=== PATIENT | female | born 1940 | race African-American/Black ===

== ENCOUNTER 2016-10-14 16:27 | Inpatient (IN) ==
[2016-10-14] MEDS ORDERED: LOPERAMIDE 2 MG CAPSULE PO STA (18:27)
[2016-10-14] MEDS ORDERED: PANTOPRAZOLE 40 MG VIAL IV STA (18:27)
[2016-10-14] MEDS ORDERED: SODIUM CHLORIDE 0.9% 1,000 ML IV STA (18:27)
[2016-10-14] MEDS ORDERED: ONDANSETRON 4 MG/2 ML VIAL IV STA (18:27)
[2016-10-14] MEDS ORDERED: METOCLOPRAMIDE 10 MG/2 ML VIAL IV STA (18:27)
[2016-10-14] MEDS ORDERED: METOPROLOL TARTRATE 5 MG/5 ML VIAL IV STA ×2 (18:29→19:11)
[2016-10-14] MEDS ORDERED: DICYCLOMINE 20 MG/2 ML AMP IM ONE ×2 (18:32→19:34)
--- NOTE | 2016-10-14 18:32 | Emergency Department Note ---
Arrival - Arrival Chief Complaint: Nausea/Vomiting/Diarrhea Stated Complaint: virus ED Nursing Triage Note: Pt c/o nausea, vomiting, and diarrhea since this am. Mode of Arrival: Wheelchair Limitations: No Limitations Source: Patient Time Seen by Provider: 10/14/16 18:26 - History of Present Illness HPI Narrative: This 76-year-old black female presents with abrupt onset 12 hours ago upon awakening of nausea, vomiting, and diarrhea. She states she has had about a dozen episodes of both vomiting and diarrhea since awakening. She denies any chills, fever, melena, or bright red blood associated with this. She does complain of significant abdominal cramping however. She currently denies likewise shortness of breath, chest pain, dysuria, urgency, or frequency. At this time she does not appear in acute medical distress. Onset (ago): hour(s) (Patient presents 12 hours post onset of symptoms) Allergies/Adverse Reactions: Allergies Allergy/AdvReac Type Severity Reaction Status Date / Time Penicillins Allergy RASH Verified 10/14/16 16:32 Review of System - Review of System 12 point system: reviewed and no additional remarkable complaints except as stated - Review of System Constitutional: Present: as per HPI Respiratory: Present: as per HPI Cardiovascular: Present: as per HPI Gastrointestinal: Present: as per HPI Medical,Surgical,& Family Hx - Medical History Cardio: History of: Hypertension Endocrine: History of: Diabetes Mellitus (IDDM) - Social History Smoking Status: Never smoker Exam Physical Examination: GENERAL: Elderly obese black female in no acute distress. HEENT: Normocephalic. No trauma. Moist mucous membranes. EOMI. PERRLA. ENT NML NECK: Supple. No adenopathy. CARDIAC: Regular. No murmurs. Heart rate 130 CHEST: Clear to auscultation. No respiratory distress. O2 sat 97% ABDOMEN: Soft. Very tender upper quadrants. Hyperactive bowel sounds. EXTREMITIES: No trauma. Normal ROM. No pedal edema. SKIN: No diaphoresis. No rash. NEURO: Alert. Neuro intact. No focal deficits. Vital Signs: Vital Signs Temperature 99.2 F 10/14/16 21:44 Pulse Rate 132 H 10/14/16 21:44 Respiratory Rate 20 10/14/16 21:44 Blood Pressure 150/104 10/14/16 21:44 O2 Sat by Pulse Oximetry 97 10/14/16 16:31 Course Course Narrative: Left external jugular placed without difficulty. - Reevaluation(s) Reevaluation #1: Discussed with patient the need for hospitalization for acute diverticulitis and abnormal cardiac enzymes - Consultations Consultation #1: Discussed with Dr. Foote will admit for Dr. North Results - Labs CBC & BMP: 10/14/16 19:49 10/14/16 19:49 Labs: I reviewed the lab and noted the elevated white blood cell count and borderline azotemia with positive troponin. - Impressions EKG: Sinus tachycardia with occasional PAC. Normal OR interval and QRS duration. Nonspecific ST changes. No acute injury pattern noted. - Diagnostic Findings Procedure: CT Abdomen and Pelvis: image reviewed by me, report reviewed by me ( Evidence of diverticulitis) Disposition Clinical Impression: Diverticulitis, Abnormal cardiac and Case discussed with: patient, patient's family Disposition: Still a Patient Condition: Guarded Time of Disposition: 01:03
[2016-10-14] MEDS ORDERED: PANTOPRAZOLE 40 MG VIAL IV ONE (19:33)
[2016-10-14] MEDS ORDERED: ONDANSETRON 4 MG/2 ML VIAL ONE (19:34)
[2016-10-14] MEDS ORDERED: METOCLOPRAMIDE 10 MG/2 ML VIAL ONE (19:34)
[2016-10-14] MEDS ORDERED: LOPERAMIDE 2 MG CAPSULE ONE (19:34)
[2016-10-14] MEDS ORDERED: METOPROLOL TARTRATE 5 MG/5 ML VIAL IV ONE (19:34)
[2016-10-14 20:24] LABS: Alanine Aminotransferase 285 U/L (16-61); Albumin 3.2 G/DL (3.4-5.0); Alkaline Phosphatase 131 U/L (45-117); Amylase 35 U/L (25-115); Aspartate Amino Transferase 368 U/L (0-37); Blood Urea Nitrogen 20 MG/DL (7-18); Calcium 8.9 MG/DL (8.5-10.1); Glucose 240 MG/DL (74-106); Osmolality,Calculated 289.4 MOS/KG (273-304); Potassium 4.7 MMOL/L (3.5-5.1); Sodium 140 MMOL/L (136-145); Troponin I Only 0.113 NG/ML (0.00-0.045)
--- NOTE | 2016-10-14 20:33 | EKG Report ---
Stationary ECG Study [facility] ER Test Date: 10/14/2016 8:32:53 PM Pat Name: LUCY SERRA Department: Room: Gender: M Sap Fico Architect: : 1940 Requested by: Obed Huffman Order Number: [id number] Reading MD: QUENTIN REEVES Intervals [place] Rate: 108 P: 63 MS: 152 QRS: 32 QRSD: 72 T: 72 QT: 319 QTc: 383 Interpretive Statements SINUS TACHYCARDIA WITH OCCASIONAL SUPRAVENTRICULAR PREMATURE COMPLEXES Electronically Signed On 10-15-16 18:17:04 CDT by QUENTIN REEVES [email or web address]
[2016-10-14 20:57] LABS: Basophils % 0.2 % (0.0-0.8); Hematocrit 34.7 VOL% (42.0-52.0); Hemoglobin 11.7 GM/DL (14.0-18.0); Immature Granulocytes % 5.1 %; Immature Granulocytes Absolute 0.72 #; Lymphocytes # 1.3 10*3/uL (1.4-4.0); Mean Corpuscular HGB Conc 33.7 GM/DL (32-36); Mean Corpuscular Hemoglobin 30 PG (27-34); Mean Corpuscular Volume 88.3 FL (87-102); Mean Platelet Volume 10.7 FL (9.6-12.0); Monocytes # 0.8 10*3/uL (0.11-0.8); Monocytes % 5.7 % (1.7-12.7); NRBC # 0.23 10*3/uL; Neutrophils # 11.4 10*3/uL (1.4-7.4); Red Blood Count 3.93 MC/CUMM (3.8-5.5); Red Cell Distribution Width 15.6 % (9.3-17.3); White Blood Count 14.3 T/CUMM (4-12)
[2016-10-14 21:01] LABS: Platelet Count 98 T/CUMM (130-400)
[2016-10-14] MEDS ORDERED: hydrALAZINE 20 MG/1 ML VIAL IV STA (21:29)
[2016-10-14] MEDS ORDERED: LEVOFLOXACIN INJ 750 MG in PREMIX 1 EACH IV STA (21:40)
[2016-10-14 21:58] LABS: Anisocytosis 1+; Lymphocytes 13 % (20-55); Nucleated Red Blood Cells 1 (0-5); Platelet Estimate Decreased; Poikilocytosis 1+; Segmented Neutrophils 86 % (50-85); Tear Drop Cells Few; Total Cells Counted 100
[2016-10-14] MEDS ORDERED: hydrALAZINE 20 MG/1 ML VIAL ONE (22:23)
[2016-10-14] MEDS ORDERED: ALUM/MAG/SIMETH/LIDO VISC 1:1 30 ML BOTTLE PO ONE (22:43)
[2016-10-14] MEDS ORDERED: LEVOFLOXACIN INJ 150 ML IV ONE (22:46)
[2016-10-14 23:07] LABS: Troponin I Only 0.136 NG/ML (0.00-0.045)
[2016-10-15] MEDS ORDERED: CLOPIDOGREL 75 MG TABLET PO STA (01:05)
[2016-10-15] MEDS ORDERED: ONDANSETRON 4 MG/2 ML VIAL IV PRN (01:05)
[2016-10-15] MEDS ORDERED: GLUCAGON 1 MG VIAL IM PRN (01:05)
[2016-10-15] MEDS ORDERED: DEXTROSE 50% 25 GM/50 ML VIAL IV PRN (01:05)
[2016-10-15] MEDS ORDERED: HYDROmorphone 2 MG/1 ML VIAL IV PRN (01:05)
[2016-10-15] MEDS: METOCLOPRAMIDE 10 MG/2 ML VIAL IV SCH ×4 (02:37→22:29)
[2016-10-15] MEDS: CIPROFLOXACIN INJ 400 MG in PREMIX 1 EACH IV SCH ×2 (02:38→14:27)
[2016-10-15] MEDS: metroNIDAZOLE INJ 500 MG in PREMIX 1 EACH IV SCH ×4 (02:40→22:26)
[2016-10-15] MEDS: NITROGLYCERIN 2% OINT 1 INCH/GM PACK TOP SCH ×3 (05:54→17:46)
--- NOTE | 2016-10-15 06:32 | CT Report ---
Exam: CT abdomen pelvis w con Date: 10/14/2016 9:27 PM Comparison: None Indication: Abdominal pain and elevated white blood cell count Total DLP: 1371.2 mGy*cm Technical: The study was initially reviewed by [facility]. Oral contrast was administered. Images were obtained from the lung bases to the iliac crest continuation through the pelvis with 100 cc of Omnipaque 350 with axial sagittal coronal imaging available for review. Dose reduction was performed with decreasing kv and mA and automated exposure Findings: Lung bases: Low volume effusions present in the right as compared to the left. Liver and Spleen: Liver reveals a tiny cyst present in the inferior right hepatic lobe measuring approximately 15 mm. The hepatic and portal veins unremarkable. The spleen is otherwise intact. Gallbladder and Pancreas: Unremarkable Adrenals: Unremarkable Kidneys: Both kidneys are equally perfused and demonstrate no evidence for obstructive uropathy. Stomach: Incomplete distended with air-fluid and debris Retroperitoneum: No enlarged lymph nodes. Aorta and IVC: Minimal atherosclerotic plaque in the aorta iliac vessels and renal arteries. Vascular plaque in the iliac vessels also present. Bowel and Mesentery: Extensive diverticular changes are present. There is some irregularity along the cecal region present. Thickening of the bowel wall is also present with the diverticular changes in the descending colon and some stranding present. The appendix is unremarkable. Pelvis: Bladder: Incompletely distended with fluid Fluid: No free fluid identified. Lymph nodes: No enlarged lymph nodes. Pelvic organs: Previous hysterectomy. Osseous structures: Discogenic disease present with vacuum phenomena in the lower 3 levels with mild weightbearing deformity at T12 along the cephalic margin. The pelvis is otherwise intact. Facet arthropathy is noted. Impression: 1. Diverticulosis with possibly a component of mild diverticulitis. Some bowel wall thickening also present in the cecal region and the descending colon. 2. Cystic lesion in the right hepatic lobe versus small hemangioma 3. Small right pleural effusion 3. Degenerative spondylosis changes thoracolumbar spine with mild compression deformity at T12 also present. PROCEDURE INTERPRETED AT [facility] DEPARTMENT OF RADIOLOGY Final Report Signed by: Dr. Yair Pitt
--- NOTE | 2016-10-15 08:10 | Internal Med History&Physical ---
Assessment and Plan (1) Acute diverticulitis Status: Acute Assessment and plan: 76-year-old female admitted to acute care * Acute diverticulitis. Patient has been started on IV antibiotics. We are doing blood cultures. She is better this morning * Hypertension. Will continue blood pressure medication * Mildly elevated troponin. Unknown significance. No history of coronary artery disease. Will consult cardiology * Diabetes. Continue sliding scale and insulin * Temporal arteritis. Continue prednisone * Abnormal thyroid function. Patient had a nuclear scan. It was more consistent with acute thyroiditis. Will check TSH and free T4 * Discussed with patient. Current Visit: Yes (2) Hypertension Status: Acute Current Visit: Yes (3) Diabetes Status: Acute Current Visit: Yes (4) Abnormal thyroid function test Status: Acute Current Visit: Yes (5) Temporal arteritis Status: Acute Current Visit: Yes (6) Alzheimer's dementia Status: Acute Current Visit: Yes (7) Chronic back pain Status: Acute Current Visit: Yes History of Present Illness Chief complaint: Nausea vomiting and diarrhea History of present illness: Ms. Vasques is a 76 year old female with history of hypertension, diabetes, hyperlipidemia, temporal arteritis, multiple falls who was admitted through the ER with nausea vomiting and diarrhea since yesterday morning. Patient had gone at least 12 times and was having watery diarrhea. She was evaluated in the emergency room and was found to have acute diverticulitis on the CT abdomen. She denies any chest pain or shortness of breath. She was having significant abdominal cramping. Patient was found to be dehydrated. Her troponins were mildly elevated and she was admitted on telemetry. She denies any chest pain or shortness of breath. Patient lives at home with her . She uses a walker to get around her house. She denies any history of smoking or alcohol use Allergies Allergy/AdvReac Type Severity Reaction Status Date / Time Penicillins Allergy RASH Verified 10/14/16 16:32 Medical,Surgical,& Family Hx - Medical History Cardio: History of: Hypertension Psychological: History of: Depression Neurology: History of: Cerebrovascular Accident, Dementia Endocrine: History of: Diabetes Mellitus (IDDM), Dyslipidemia, Thyroid Disorder Rheumatology: History of;: Rheumatological Problems (Temporal arteritis) Gastrointestinal: History of: GERD Musculoskeletal: History of: Musculoskeletal Problems (Multiple falls recently with fracture) Hematology: History of: Anemia (Required transfusions in the past) - Surgical History Reproductive Surgeries: Surgical HX of;: Section (3), Hysterectomy Orthopedic Surgeries: Surgical HX of;: Orthopedic Surgery (Right rotator cuff surgery) - Family History Family History: Reports;: Family Cancer (Pancreatic and her mother), Family Diabetes, Family Hypertension, Family Stroke - Social History Smoking Status: Never smoker Frequency of Alcohol Use: None Marital Status: Lives With:: Spouse Functional capacity: uses cane/walker 12 point system: reviewed and no additional remarkable complaints except as stated (As mentioned in HPI) Exam - Constitutional Vitals: Period Temp Pulse Resp BP Sys/[place]on Pulse Ox Last 24 Hr 98.0 F-99.4 F 74-126 18-20 112-153/59-98 93-96 Exam: Examination: GENERAL: NAD. HEENT: PERRLA. EOMI. Mucous membranes are moist. NECK: Neck is supple. No JVD. No carotid bruit. No thyromegaly. CVS: Patient is tachycardic. S1 and S2 are normal. Rhythm is regular RESPIRATORY: Lungs are clear. No rales or rhonchi. ABDOMEN: Soft but diffuse tenderness mainly in left lower and middle quadrants. Bowel sounds are present. No hepatosplenomegaly. EXT: No edema. Peripheral pulses are present. AERIAL PHOTOGRAPHER: Patient is awake, alert and oriented to time place and person. Cranial nerves II through XII are grossly intact. Motor strength is 4/5 SKIN: Warm and dry. MSK: No obvious deformity. Results - Labs CBC & BMP: 10/14/16 19:49 10/14/16 19:49 Lab Results: I have reviewed the past 24 hour labs
[2016-10-15 08:21] LABS: Basophils % 0.2 % (0.0-0.8); Eosinophils % 0.2 % (0.00-10.9); Hematocrit 31.7 VOL% (35.7-47.0); Hemoglobin 10.7 GM/DL (12.0-16.0); Immature Granulocytes % 4.5 %; Immature Granulocytes Absolute 0.53 #; Lymphocytes # 1.5 10*3/uL (1.4-4.0); Lymphocytes % 12.9 % (21.3-54.2); Mean Corpuscular HGB Conc 33.8 GM/DL (32-36); Mean Corpuscular Hemoglobin 30 PG (27-34); Mean Corpuscular Volume 88.3 FL (87-102); Mean Platelet Volume 10.1 FL (9.6-12.0); Monocytes # 0.7 10*3/uL (0.11-0.8); Monocytes % 5.7 % (1.7-12.7); NRBC # 0.07 10*3/uL; Neutrophils # 9.1 10*3/uL (1.4-7.4); Neutrophils % 76.5 % (38.7-73.9); Platelet Count 95 T/CUMM (130-400); Red Blood Count 3.59 MC/CUMM (3.8-5.5); Red Cell Distribution Width 15.9 % (9.3-17.3); White Blood Count 11.8 T/CUMM (4-12)
[2016-10-15 08:42] LABS: Lymphocytes 17 % (20-55); Nucleated Red Blood Cells 1 (0-5); Segmented Neutrophils 78 % (50-85); Total Cells Counted 100
[2016-10-15 08:46] LABS: Microcytosis 1+
[2016-10-15 08:47] LABS: Hypochromasia Slight; Platelet Estimate Decreased
[2016-10-15 08:48] LABS: Calcium 8.2 MG/DL (8.5-10.1); Osmolality,Calculated 284.4 MOS/KG (273-304); Potassium 3.7 MMOL/L (3.5-5.1)
--- NOTE | 2016-10-15 08:53 | EKG Report ---
Stationary ECG Study [facility] Test Date: 10/15/2016 7:35:50 AM Pat Name: LUCY SERRA Department: Room: 280 Gender: F [employer] Bonder: HARRIS : 1940 Requested by: Obed Huffman Order Number: [id number] Reading MD: QUENTIN REEVES Intervals [place] Rate: 124 P: 999 [place]: 0 QRS: 27 QRSD: 71 T: 84 QT: 310 QTc: 383 Interpretive Statements SINUS TACHYCARDIA Electronically Signed On 10-15-16 18:28:11 CDT by QUENTIN REEVES [email or web address]
[2016-10-15] MEDS ORDERED: METOPROLOL TARTRATE 50 MG TABLET PO SCH (09:00)
[2016-10-15 09:08] LABS: Free T4 (Free Thyroxine) 1.04 NG/DL (0.76-1.46); Thyroid Stimulating Hormone 0.38 uIU/ml (0.358-3.74)
[2016-10-15] MEDS ORDERED: ACETAMINOPHEN 325 MG TABLET PO PRN (09:55)
[2016-10-15] MEDS ORDERED: traMADol 50 MG TABLET PO PRN (09:55)
[2016-10-15] MEDS: INSULIN NPH/REGULAR 70/30 100 UNIT/ML SUBCUT SCH ×2 (10:16→18:00)
[2016-10-15] MEDS: PANTOPRAZOLE 40 MG TABLET PO SCH ×2 (10:16→22:31)
[2016-10-15] MEDS: INSULIN REGULAR 100 UNIT/ML SUBCUT SCH ×4 (10:17→22:32)
--- NOTE | 2016-10-15 11:02 | Cardiology Consult Note ---
Addendum entered and electronically signed by Yasmin Escudero NP 10/15/16 15:10 : Patient was seen and examined with Dr. Rico. It is felt that patient's mildly elevated troponin is secondary to patient's tachycardia, hypertension and renal insufficiency. However, patient does have multiple risk factors including diabetes, hypertension, hyperlipidemia and sedentary lifestyle. For this reason, I think that patient should undergo further cardiac workup. This can be done as an outpatient when patient's acute diverticulitis resolves. Original Note: Assessment and Plan - Time spent with patient Time spent with patient: Greater than 30 minutes (1) Elevated troponin Status: Acute Assessment and plan: See plan of care listed below. Current Visit: Yes (2) Acute diverticulitis Status: Acute Assessment and plan: See plan of care listed below. Current Visit: Yes (3) Abnormal thyroid function test Status: Acute Assessment and plan: See plan of care listed below. Current Visit: Yes (4) Alzheimer's dementia Status: Chronic Assessment and plan: See plan of care listed below. Current Visit: Yes (5) Chronic back pain Status: Chronic Assessment and plan: See plan of care listed below. Current Visit: Yes (6) Diabetes Status: Chronic Assessment and plan: See plan of care listed below. Current Visit: Yes (7) Hypertension Status: Chronic Assessment and plan: See plan of care listed below. Current Visit: Yes (8) Temporal arteritis Status: Chronic Assessment and plan: See plan of care listed below. Current Visit: Yes (9) Dehydration Status: Acute Assessment and plan: See plan of care listed below. Current Visit: No (10) Sinus tachycardia Status: Acute Assessment and plan: See plan of care listed below. Current Visit: Yes History of Present Illness - Data of Consult Patient: new to practice Consult date: 10/15/16 Requesting Physician: Sunny North Primary care physician: Sunny North - Consult Narrative Reason for consult: Elevated troponin History of present illness: Occupational Therapy Assistant: NONE PCP: Dr. North Ms. Vasques is a 76 year old female without known history of coronary artery disease, not routinely followed by cardiology. Patient presented to the emergency department yesterday with complaints of abdominal pain, nausea, vomiting and diarrhea. Patient has cardiac risk factors significant for diabetes, hyperlipidemia, hypertension, advanced age and sedentary lifestyle. Lifetime non-smoker. She has past medical history of dementia, GERD, temporal arteritis and multiple falls. Patient has never undergone left heart catheterization or cardiac stress testing. Patient was in her usual state of health until yesterday when she began experiencing abdominal cramping, nausea, vomiting and diarrhea. She was diagnosed with acute diverticulitis and admitted under Dr. North's service. During her hospitalization, she was noted to have mildly elevated troponin, 0.113 and 0.136 in the setting of a creatinine of 1.6 and 1.4. No history of coronary artery disease. Cardiology was consulted to further evaluate this. Patient was seen and examined on the telemetry unit. She denies having any anginal symptoms. Denies chest pain, heaviness and tightness. She also has been without shortness of breath as well as dyspnea on exertion. EKG is unchanged from previous admissions. Upon arrival to the emergency department, she was noted to be dehydrated, IV fluids were initiated. She has been in sinus tachycardia with heart rates as high as 130. I suspect this is related to her dehydration as well as infectious process. Low-grade fevers noted. IV antibiotics have been initiated and patient continues to receive IV fluids. She reports that her abdominal cramping, nausea vomiting and diarrhea has slightly improved overnight. Currently, she is in normal sinus rhythm with heart rates in the 90s without any overt arrhythmias or ectopy noted. Vital signs are stable. Will continue to cycle cardiac biomarkers to ensure that there is no upward trend. Will discuss further with Dr. Rico and await his recommendations. Assessment/plan: 1. ELEVATED TROPONIN - Troponin mildly elevated upon admission, 0.113 and 0.136 in the setting of a creatinine of 1.6 and 1.4. Patient has been without anginal symptoms. EKG is unchanged from previous admissions. I suspect that this is most likely related to patient's elevated creatinine and tachycardia. We will continue to cycle cardiac biomarkers to ensure that there is no upward trend. Will discuss further with Dr. Rico and await his recommendations. 2. SINUS TACHYCARDIA - I suspect this is related to acute infectious process as well as dehydration. Continue with fluid resuscitation and IV antibiotics. We will continue to monitor and increase beta-idalia dose if needed. 3. HYPERTENSION - Continue current plan of care. 4. HYPERLIPIDEMIA - Continue current plan of care with lipid lowering agent. Lipid panel ordered. 5. ACUTE DIVERTICULITIS - This has clinically improved overnight. Continue current plan of care with IV antibiotics. Defer further management to attending. 6. DIABETES - Management per attending. 7. TEMPORAL ARTERITIS - Continue steroid therapy. Management per attending. 8. DEMENTIA - Continue current plan of care with Aricept. 9. ABNORMAL THYROID FUNCTION TEST - Nuclear scan was consistent with acute thyroiditis. Defer management of this to attending. 10. DEHYDRATION - Continue current plan of care with IV fluids. 11. GERD - Clinically stable. Continue current plan of care with PPI. -Further plan and addendum to follow per Dr. Rico. CC: Sunny North MD - Home Medications and Allergies Home Medications: Home Medications Medication Instructions Recorded Confirmed Type Aspirin [Ecotrin] 325 mg PO DAILY 08/30/15 10/15/16 History Donepezil [Aricept] 10 mg PO BEDTIME 08/30/15 10/15/16 History Estradiol Tab [Estrace Tab] 1 mg PO DAILY 08/30/15 10/15/16 History Pravastatin Sodium 20 mg PO DAILY 08/30/15 10/15/16 History Docusate Sodium Cap [Colace Cap] 100 mg PO BID capsule 02/05/16 10/15/16 Rx HYDROcodone/ACETAMIN 5-325 [[place] 1 tablet PO Q4H PRN #0 tablet 02/05/16 Rx 5-325] Insulin Aspart Prot/Asp 70/30 28 unit SUBCUT BID 02/28/16 10/15/16 History [NovoLOG Mix 70/30] Potassium Chloride Cap/Tab [K Dur] 10 meq PO DAILY 03/28/16 10/15/16 History Amitriptyline [Elavil] 75 mg PO BEDTIME 10/15/16 10/15/16 History Lisinopril [Lisinopril] 2.5 mg PO BEDTIME 10/15/16 10/15/16 History Losartan Potassium 50 mg PO DAILY 10/15/16 10/15/16 History Metoprolol Succinate 25 mg PO BEDTIME 10/15/16 10/15/16 History Morphine Ir Tab [Morphine IR Tab] 15 mg PO Q12HR PRN 10/15/16 10/15/16 History Omeprazole [Omeprazole] 20 mg PO BID 10/15/16 10/15/16 History PARoxetine HCl [Paroxetine HCl] 20 mg PO BEDTIME 10/15/16 10/15/16 History predniSONE TAB [PredniSONE] 5 mg PO DAILY 10/15/16 10/15/16 History Allergies/Adverse Reactions: Allergies Allergy/AdvReac Type Severity Reaction Status Date / Time Penicillins Allergy RASH Verified 10/14/16 16:32 propoxyphene Allergy RASH Verified 01/30/16 08:39 [From [facility]] - Constitutional Constitutional: Present: frequent falls, malaise. Absent: chills, fatigue, fever(s), weight gain, weight loss - Cardiovascular Cardiovascular: Absent: chest pain at rest, chest pain with activity, claudication, diaphoresis, dyspnea, dyspnea on exertion, edema, radiating jaw, neck or arm pain, lightheadedness, orthopnea, palpitations, PND - Respiratory Respiratory: Absent: cough, dyspnea, hemoptysis, dyspnea on exertion, wheezing, pain on inspiration, change in phlegm color - Gastrointestinal Gastrointestinal: Present: abdominal pain, change in bowel habits, diarrhea, loose stools, nausea, vomiting - Neurological Neurological: Present: frequent falls, headache(s). Absent: abnormal gait, abnormal speech, behavioral changes, dizziness, syncope Medical,Surgical,& Family Hx - Medical History Cardio: History of: Cerebrovascular Disease, Hypertension Psychological: History of: Depression Neurology: History of: Cerebrovascular Accident, Dementia Endocrine: History of: Diabetes Mellitus (NIDDM), Dyslipidemia, Thyroid Disorder Rheumatology: History of;: Rheumatological Problems (Temporal arteritis) Gastrointestinal: History of: GERD Musculoskeletal: History of: Musculoskeletal Problems (Multiple falls recently with fracture, chronic back pain) Hematology: History of: Anemia (Required transfusions in the past) No history of: Blood Transfusion Reaction Reproductive: No history of: Breast Cancer Other: History of: Miscellaneous Medical Problems (Temporal arteritis) - Surgical History HEENT Surgeries: Patient denies: Tonsilectomy & Adenoidectomy Abdominal Surgeries: Surgical HX of: Colonoscopy Patient denies: Appendectomy, Cholecystectomy, EGD Reproductive Surgeries: Surgical HX of;: Section (3), Hysterectomy Orthopedic Surgeries: Surgical HX of;: Orthopedic Surgery (Right rotator cuff surgery) Patient denies;: Total Hip Replacement, Total Knee Replacement - Family History Family History: Reports;: Family Cancer (Pancreatic and her mother), Family Diabetes, Family Hypertension, Family Stroke Denies;: Family Heart Disease - Social History Smoking Status: Never smoker Frequency of Alcohol Use: None Type of Drug Use: None Physical Examination Vital Signs Temp Pulse Resp BP Pulse Ox 99.2 F 132 H 20 150/104 97 10/14/16 16:31 10/14/16 16:31 10/14/16 16:31 10/14/16 16:31 10/14/16 16:31 General: Present: Appears Well, No Apparent Distress HEENT: Present: Normocephaly Neck: Present: Supple Neck, Midline Trachea, No JVD/HJR, No Bruit, No Lymphadenopathy Cardiac: Present: Reg Rate and Rhythm, Regular Rhythm, S1/S2, Tachycardia Lungs: Present: Normal Exam, Clear Ascult./Percussion, Normal Breath Sounds, No Wheeze, Rales, Rhonchi Abdomen: Present: Soft, Active Bowel Sounds, Tender Skin: Present: Clear. Absent: Rash, Suspicious Lesions, Ulceration Extremities: Present: No Clubbing, No Cyanosis, No Edema, Normal Upper Extr. Pulses, Normal Lower Extr. Pulses Result/EKG - Labs CBC & BMP: 10/15/16 08:14 10/15/16 08:14 Lab Results: I have reviewed the past 24 hour labs Labs: Laboratory Results - last 24 hr 10/15/16 10/15/16 10/15/16 08:14 08:14 08:14 WBC 11.8 RBC 3.59 L Hgb 10.7 L Hct 31.7 L MCV 88.3 MCH 30 MCHC 33.8 RDW 15.9 Plt Count 95 L MPV 10.1 Neut % (Auto) 76.5 H Lymph % (Auto) 12.9 L [place] % (Auto) 5.7 Eos % (Auto) 0.2 Baso % (Auto) 0.2 Neut # (Auto) 9.1 H Lymph # (Auto) 1.5 [place] # (Auto) 0.7 Eos # (Auto) 0.0 Baso # (Auto) 0.0 Total Counted 100 Immature Gran % 4.5 Nucleated RBC % 0.6 Immature Gran # 0.53 Segmented Neutrophils 78 Lymphocytes 17 L Monocytes 5 Nucleated RBCs 1 Nucleated RBCs # 0.07 Platelet Estimate Decreased Hypochromasia Slight Microcytosis 1+ Sodium 140 Potassium 3.7 Chloride 104 Carbon Dioxide 25 Anion Gap 14.7 BUN 15 Creatinine 1.40 H GFR Calculation 50 BUN/Creatinine Ratio 10.00 Glucose 183 H Calculated Osmolality 284.4 Calcium 8.2 L Free T4 1.04 TSH 3rd Generation 0.380 - EKG EKG results: sinus rhythm EKG shows: tachycardia
[2016-10-15] MEDS ORDERED: MORPHINE IR 15 MG TABLET PO PRN (11:27)
[2016-10-15] MEDS ORDERED: METOPROLOL TARTRATE 50 MG TABLET PO ONE (11:49)
[2016-10-15] MEDS: SODIUM CHLORIDE 0.9% 1,000 ML IV SCH ×3 (12:45→23:48)
[2016-10-15 13:08] LABS: Troponin I Only 0.113 NG/ML (0.00-0.045)
--- NOTE | 2016-10-15 18:10 | ECHO Report ---
Evy Vasques Exam Date: 10/15/2016 16:34 Referring Physician: Technologist: Radha Araiza RDCS Age: 76 Ht (in): 68 Wt (lb): 201 Gender: F Exam Location: [facility] Echo Indications: Essential (primary) hypertension, Elevated troponin, Diabetes BP: 144 / 79 HR: 90 Rhythm: Sinus Technical Quality: Fair IMPRESSIONS EF 50%. Mild concentric left ventricular hypertrophy. Grade I/IV diastolic dysfunction (abnormal relaxation filling pattern), normal to mildly elevated filling pressures. Normal right ventricular size and systolic function. The right atrium is mildly enlarged. The left atrium is mildly enlarged. Mitral valve sclerosis. Trace mitral valve regurgitation. Aortic valve sclerosis. Trace aortic valve regurgitation. Moderate tricuspid valve regurgitation. PAP 45 mmHG. Pulmonic valve not well visualized. No pericardial effusion. Normal aorta. MEASUREMENTS (Male / Female) Normal Values 2D ECHO LV Diastolic Diameter PLAX 3.4 cm 4.2 - 5.9 / 3.9 - 5.3 cm LV Systolic Diameter PLAX 2.8 cm LV Fractional Shortening PLAX 18.1 % IVS Diastolic Thickness 1.2 cm 0.6 - 1.0 / 0.6 - 0.9 cm LVPW Diastolic Thickness 1.2 cm 0.6 - 1.0 / 0.6 - 0.9 cm RV Internal Dim ED PLAX 2.3 cm Aortic Root Diameter 2.8 cm LA Systolic Diameter LX 2.9 cm 3.0 - 4.0 / 2.7 - 3.8 cm DOPPLER TR Peak Velocity 280.0 cm/s TR Peak Gradient 31.4 mmHg FINDINGS Left Ventricle EF 50%. Mild concentric left ventricular hypertrophy. Grade I/IV diastolic dysfunction (abnormal relaxation filling pattern), normal to mildly elevated filling pressures. Right Ventricle Normal right ventricular size and systolic function. Right Atrium The right atrium is mildly enlarged. Left Atrium The left atrium is mildly enlarged. Mitral Valve Mitral valve sclerosis. Trace mitral valve regurgitation. Aortic Valve Aortic valve sclerosis. Trace aortic valve regurgitation. Tricuspid Valve Morphologically normal tricuspid valve. Moderate tricuspid valve regurgitation. PAP 45 mmHG. Pulmonic Valve Pulmonic valve not well visualized. Pericardium No pericardial effusion. Aorta Normal aorta. Xavier Josefa (Electronically Signed) Final Date: 15 Oct 2016 18:09
[2016-10-15 20:02] LABS: Troponin I Only 0.077 NG/ML (0.00-0.045)
[2016-10-15] MEDS ORDERED: METOPROLOL TARTRATE 100 MG TABLET PO SCH (21:00)
[2016-10-15] MEDS ORDERED: METOPROLOL SUCCINATE XL 25 MG TABLET PO SCH (21:00)
[2016-10-15] MEDS: ENOXAPARIN 40 MG/0.4 ML SYRINGE SUBCUT SCH (22:28)
[2016-10-15] MEDS: DONEPEZIL 10 MG TABLET PO SCH (22:29)
[2016-10-15] MEDS: PARoxetine 20 MG TABLET PO SCH (22:30)
[2016-10-15] MEDS: AMITRIPTYLINE 25 MG TABLET PO SCH (22:30)
[2016-10-15] MEDS: DOCUSATE SODIUM 100 MG CAPSULE PO SCH (22:31)
[2016-10-15] MEDS: INSULIN ASPART PROTAMINE/ASPART 70/30 100 UNIT/ML SUBCUT SCH (22:31)
[2016-10-15] MEDS: METOPROLOL TARTRATE 100 MG TABLET PO SCH (22:32)
[2016-10-16] MEDS: NITROGLYCERIN 2% OINT 1 INCH/GM PACK TOP SCH ×4 (00:07→18:21)
[2016-10-16] MEDS: CIPROFLOXACIN INJ 400 MG in PREMIX 1 EACH IV SCH ×2 (00:30→12:31)
[2016-10-16] MEDS: metroNIDAZOLE INJ 500 MG in PREMIX 1 EACH IV SCH ×4 (04:31→20:47)
[2016-10-16] MEDS: METOCLOPRAMIDE 10 MG/2 ML VIAL IV SCH (04:31)
[2016-10-16 05:31] LABS: Basophils % 0.2 % (0.0-0.8); Eosinophils # 0.1 10*3/uL (0.0-0.87); Eosinophils % 0.6 % (0.00-10.9); Hemoglobin 9.1 GM/DL (12.0-16.0); Immature Granulocytes % 5.3 %; Immature Granulocytes Absolute 0.48 #; Lymphocytes # 1.7 10*3/uL (1.4-4.0); Lymphocytes % 18.8 % (21.3-54.2); Mean Corpuscular HGB Conc 33.7 GM/DL (32-36); Mean Corpuscular Hemoglobin 30 PG (27-34); Mean Corpuscular Volume 88.5 FL (87-102); Mean Platelet Volume 10.7 FL (9.6-12.0); Monocytes # 0.6 10*3/uL (0.11-0.8); Monocytes % 6.9 % (1.7-12.7); NRBC # 0.03 10*3/uL; Neutrophils # 6.2 10*3/uL (1.4-7.4); Neutrophils % 68.2 % (38.7-73.9); Red Blood Count 3.05 MC/CUMM (3.8-5.5); Red Cell Distribution Width 15.9 % (9.3-17.3); White Blood Count 9.1 T/CUMM (4-12)
[2016-10-16 05:36] LABS: Platelet Count 99 T/CUMM (130-400)
[2016-10-16 05:56] LABS: Lymphocytes 23 % (20-55); Nucleated Red Blood Cells 1 (0-5); Segmented Neutrophils 74 % (50-85); Total Cells Counted 100
[2016-10-16 05:57] LABS: Hypochromasia Slight; Microcytosis 1+; Platelet Estimate Decreased; Tear Drop Cells Slight
[2016-10-16 06:02] LABS: Risk Ratio 2.47
[2016-10-16 06:04] LABS: Troponin I Only 0.068 NG/ML (0.00-0.045)
[2016-10-16 06:05] LABS: Albumin 2.6 G/DL (3.4-5.0); Bilirubin,Total 0.7 MG/DL (0.2-1.0); Calcium 7.4 MG/DL (8.5-10.1); Osmolality,Calculated 281.1 MOS/KG (273-304); Potassium 3.4 MMOL/L (3.5-5.1); Total Protein 5.3 G/DL (6.4-8.3)
[2016-10-16] MEDS: INSULIN REGULAR 100 UNIT/ML SUBCUT SCH ×4 (08:29→21:20)
[2016-10-16] MEDS: INSULIN NPH/REGULAR 70/30 100 UNIT/ML SUBCUT SCH (08:29)
[2016-10-16] MEDS: INSULIN ASPART PROTAMINE/ASPART 70/30 100 UNIT/ML SUBCUT SCH ×2 (08:29→21:20)
[2016-10-16] MEDS ORDERED: POTASSIUM CHLORIDE 10 MEQ TABLET PO SCH (09:00)
--- NOTE | 2016-10-16 09:07 | Internal Med Progress Note ---
Assessment and Plan (1) Acute diverticulitis Status: Acute Assessment and plan: 76-year-old female admitted to acute care * Acute diverticulitis. Clinically better. Continue antibiotic * Hypertension. Will continue blood pressure medication * Mildly elevated troponin. Outpatient workup * Diabetes. Continue sliding scale and insulin * Temporal arteritis. Continue prednisone * Abnormal thyroid function. Will check her thyroid function * Will move her to regular floor Current Visit: Yes (2) Hypertension Status: Chronic Current Visit: Yes (3) Diabetes Status: Chronic Current Visit: Yes (4) Abnormal thyroid function test Status: Acute Current Visit: Yes (5) Temporal arteritis Status: Chronic Current Visit: Yes (6) Alzheimer's dementia Status: Chronic Current Visit: Yes (7) Chronic back pain Status: Chronic Current Visit: Yes Internal Medicine - PN: Subj Interval history: She is feeling better this morning. She had some nausea. She is not hurting in her abdomen. No chest pain or shortness of breath. Exam (Progress Note) - Constitutional Vitals: Period Temp Pulse Resp BP Sys/Salmeron Pulse Ox Last 24 Hr 97.9 F-99.2 F 80-95 16-20 131-163/68-99 93-97 Exam: Examination: GENERAL: NAD. HEENT: PERRLA. EOMI. NECK: Neck is supple. CVS: Patient is tachycardic. S1 and S2 are normal. Rhythm is regular RESPIRATORY: Lungs are clear. No rales or rhonchi. ABDOMEN: Soft, mild tenderness in left lower quadrant EXT: No edema. Peripheral pulses are present. SKIN: Warm and dry. MSK: No obvious deformity. Results - Labs CBC & BMP: 10/16/16 05:11 10/16/16 05:11 Lab Results: I have reviewed the past 24 hour labs
[2016-10-16] MEDS: DOCUSATE SODIUM 100 MG CAPSULE PO SCH ×2 (09:09→20:47)
[2016-10-16] MEDS: predniSONE 5 MG TABLET PO SCH (09:09)
[2016-10-16] MEDS: ASPIRIN EC 325 MG TABLET PO SCH (09:09)
[2016-10-16] MEDS: ESTRADIOL 1 MG TABLET PO SCH (09:09)
[2016-10-16] MEDS: PRAVASTATIN 20 MG TABLET PO SCH (09:09)
[2016-10-16] MEDS: METOPROLOL TARTRATE 100 MG TABLET PO SCH ×2 (09:09→20:46)
[2016-10-16] MEDS: PANTOPRAZOLE 40 MG TABLET PO SCH ×3 (09:10→20:55)
[2016-10-16] MEDS: SODIUM CHLORIDE 0.9% 1,000 ML IV SCH (09:18)
--- NOTE | 2016-10-16 15:58 | Cardiology Progress Note ---
Assessment and Plan (1) Elevated troponin Status: Acute Assessment and plan: See plan of care listed below. Current Visit: Yes (2) Acute diverticulitis Status: Acute Assessment and plan: See plan of care listed below. Current Visit: Yes (3) Abnormal thyroid function test Status: Acute Assessment and plan: See plan of care listed below. Current Visit: Yes (4) Alzheimer's dementia Status: Chronic Assessment and plan: See plan of care listed below. Current Visit: Yes (5) Chronic back pain Status: Chronic Assessment and plan: See plan of care listed below. Current Visit: Yes (6) Diabetes Status: Chronic Assessment and plan: See plan of care listed below. Current Visit: Yes (7) Hypertension Status: Chronic Assessment and plan: See plan of care listed below. Current Visit: Yes (8) Temporal arteritis Status: Chronic Assessment and plan: See plan of care listed below. Current Visit: Yes (9) Dehydration Status: Acute Assessment and plan: See plan of care listed below. Current Visit: No (10) Sinus tachycardia Status: Acute Assessment and plan: See plan of care listed below. Current Visit: Yes Cardiology - PN: Subj Interval history: Peanut Grader: Dr. Rico (NEW) PCP: Dr. North Ms. Vasques is a 76 year old female without known history of coronary artery disease, not routinely followed by cardiology. Patient presented to the emergency department yesterday with complaints of abdominal pain, nausea, vomiting and diarrhea. Patient has cardiac risk factors significant for diabetes, hyperlipidemia, hypertension, advanced age and sedentary lifestyle. Lifetime non-smoker. She has past medical history of dementia, GERD, temporal arteritis and multiple falls. Patient has never undergone left heart catheterization or cardiac stress testing. Patient was admitted to [facility] with acute diverticulitis. She is admitted under Dr. North's service. During her hospitalization, she was noted to have mildly elevated troponin, 0.113 and 0.136 in the setting of renal insufficiency, hypertension and tachycardia. No history of coronary artery disease. Cardiology was consulted to further evaluate this. Echocardiogram reveals ejection fraction of 50%. Mild concentric left ventricular hypertrophy. Grade 1 diastolic dysfunction. Moderate TR. Pulmonary artery pressure 45 mmHg. She denies having any anginal symptoms. She is treated appropriately for acute diverticulitis. Her symptoms have clinically improved overnight. She continues to be without chest pain, heaviness and tightness. Clinically, she is stable from a cardiac standpoint. At this time we will sign off. Please contact us if we can begin any further assistance during her hospital stay. Assessment/plan: 1. ELEVATED TROPONIN - Patient has been without anginal symptoms. EKG is unchanged from previous admissions. I suspect that this is most likely related to patient's renal insufficiency, hypertension and tachycardia. However, patient does have multiple risk factors including diabetes, hypertension, hyperlipidemia and sedentary lifestyle. For this reason, I think that patient should undergo further cardiac workup. This can be done as an outpatient once patient's acute diverticulitis resolves. Patient will be given a follow-up appointment with Dr. Rico approximately 2 weeks after discharge. Patient is stable from a cardiac standpoint. At this time we will sign off. Please contact us if we can be to any further assistance during her hospital stay. 2. SINUS TACHYCARDIA - Resolved. 3. HYPERTENSION - Continue current plan of care. 4. HYPERLIPIDEMIA - Continue current plan of care with lipid lowering agent. Lipid panel ordered. 5. ACUTE DIVERTICULITIS - Clinically better. Continue current plan of care with IV antibiotics. Defer further management to attending. 6. DIABETES - Management per attending. 7. TEMPORAL ARTERITIS - Continue steroid therapy. Management per attending. 8. DEMENTIA - Continue current plan of care with Aricept. 9. ABNORMAL THYROID FUNCTION TEST - Nuclear scan was consistent with acute thyroiditis. Defer management of this to attending. 10. DEHYDRATION - Management per attending. 11. GERD - Clinically stable. Continue current plan of care with PPI. Exam (Progress Note) - Constitutional Vitals: Period Temp Pulse Resp BP Sys/Salmeron Pulse Ox Last 24 Hr 97.9 F-99.2 F 80-95 18-20 131-163/68-99 93-97 Exam: General: Present: Appears Well, No Apparent Distress HEENT: Present: Normocephaly Neck: Present: Supple Neck, Midline Trachea, No JVD/HJR, No Bruit, No Lymphadenopathy Cardiac: Present: Reg Rate and Rhythm, Regular Rhythm, S1/S2 Lungs: Present: Normal Exam, Clear Ascult./Percussion, Normal Breath Sounds, No Wheeze, Rales, Rhonchi Abdomen: Present: Soft, Active Bowel Sounds, Tender Skin: Present: Clear. Absent: Rash, Suspicious Lesions, Ulceration Extremities: Present: No Clubbing, No Cyanosis, No Edema, Normal Upper Extr. Pulses, Normal Lower Extr. Pulses Result/EKG - Labs CBC & BMP: 10/16/16 05:11 10/16/16 05:11 Lab Results: I have reviewed the past 24 hour labs Labs: Laboratory Results - last 24 hr 10/15/16 10/15/16 10/15/16 15:37 17:36 19:07 WBC RBC Hgb Hct MCV MCH MCHC RDW Plt Count MPV Neut % (Auto) Lymph % (Auto) [place] % (Auto) Eos % (Auto) Baso % (Auto) Neut # (Auto) Lymph # (Auto) [place] # (Auto) Eos # (Auto) Baso # (Auto) Total Counted Immature Gran % Nucleated RBC % Immature Gran # Segmented Neutrophils Lymphocytes Monocytes Nucleated RBCs Nucleated RBCs # Platelet Estimate Hypochromasia Microcytosis Tear Drop Cells Sodium Potassium Chloride Carbon Dioxide Anion Gap BUN Creatinine GFR Calculation BUN/Creatinine Ratio Glucose POC Glucose 207 H 90 Calculated Osmolality Calcium Total Bilirubin AST ALT Alkaline Phosphatase Total Creatine Kinase 92 CK-MB (CK-2) 1.8 Troponin I 0.077 H D Total Protein Albumin Globulin Albumin/Globulin Ratio Triglycerides Cholesterol LDL Cholesterol VLDL Cholesterol HDL Cholesterol Heart Disease Risk Ratio 10/15/16 10/16/16 10/16/16 19:40 05:11 05:11 WBC 9.1 RBC 3.05 L Hgb 9.1 L Hct 27.0 L MCV 88.5 MCH 30 MCHC 33.7 RDW 15.9 Plt Count 99 L MPV 10.7 Neut % (Auto) 68.2 Lymph % (Auto) 18.8 L [place] % (Auto) 6.9 Eos % (Auto) 0.6 Baso % (Auto) 0.2 Neut # (Auto) 6.2 Lymph # (Auto) 1.7 [place] # (Auto) 0.6 Eos # (Auto) 0.1 Baso # (Auto) 0.0 Total Counted 100 Immature Gran % 5.3 Nucleated RBC % 0.3 Immature Gran # 0.48 Segmented Neutrophils 74 Lymphocytes 23 Monocytes 3 Nucleated RBCs 1 Nucleated RBCs # 0.03 Platelet Estimate Decreased Hypochromasia Slight Microcytosis 1+ Tear Drop Cells Slight Sodium Potassium Chloride Carbon Dioxide Anion Gap BUN Creatinine GFR Calculation BUN/Creatinine Ratio Glucose POC Glucose 105 Calculated Osmolality Calcium Total Bilirubin AST ALT Alkaline Phosphatase Total Creatine Kinase CK-MB (CK-2) Troponin I Total Protein Albumin Globulin Albumin/Globulin Ratio Triglycerides 145 Cholesterol 193 LDL Cholesterol 96.0 VLDL Cholesterol 29.0 HDL Cholesterol 78 H Heart Disease Risk Ratio 2.47 10/16/16 10/16/16 10/16/16 05:11 05:11 07:29 WBC RBC Hgb Hct MCV MCH MCHC RDW Plt Count MPV Neut % (Auto) Lymph % (Auto) [place] % (Auto) Eos % (Auto) Baso % (Auto) Neut # (Auto) Lymph # (Auto) [place] # (Auto) Eos # (Auto) Baso # (Auto) Total Counted Immature Gran % Nucleated RBC % Immature Gran # Segmented Neutrophils Lymphocytes Monocytes Nucleated RBCs Nucleated RBCs # Platelet Estimate Hypochromasia Microcytosis Tear Drop Cells Sodium 142 Potassium 3.4 L Chloride 109 H Carbon Dioxide 24 Anion Gap 12.4 BUN 10 Creatinine 1.20 H GFR Calculation 61 BUN/Creatinine Ratio 8.00 Glucose 90 POC Glucose 115 H Calculated Osmolality 281.1 Calcium 7.4 L Total Bilirubin 0.70 AST 52 H ALT 127 H Alkaline Phosphatase 97 Total Creatine Kinase 91 CK-MB (CK-2) 1.6 Troponin I 0.068 H Total Protein 5.3 L Albumin 2.6 L Globulin 2.7 Albumin/Globulin Ratio 0.9 L Triglycerides Cholesterol LDL Cholesterol VLDL Cholesterol HDL Cholesterol Heart Disease Risk Ratio 10/16/16 11:16 WBC RBC Hgb Hct MCV MCH MCHC RDW Plt Count MPV Neut % (Auto) Lymph % (Auto) [place] % (Auto) Eos % (Auto) Baso % (Auto) Neut # (Auto) Lymph # (Auto) [place] # (Auto) Eos # (Auto) Baso # (Auto) Total Counted Immature Gran % Nucleated RBC % Immature Gran # Segmented Neutrophils Lymphocytes Monocytes Nucleated RBCs Nucleated RBCs # Platelet Estimate Hypochromasia Microcytosis Tear Drop Cells Sodium Potassium Chloride Carbon Dioxide Anion Gap BUN Creatinine GFR Calculation BUN/Creatinine Ratio Glucose POC Glucose 233 H Calculated Osmolality Calcium Total Bilirubin AST ALT Alkaline Phosphatase Total Creatine Kinase CK-MB (CK-2) Troponin I Total Protein Albumin Globulin Albumin/Globulin Ratio Triglycerides Cholesterol LDL Cholesterol VLDL Cholesterol HDL Cholesterol Heart Disease Risk Ratio Specialty Discharge - Follow Up or Referrals Follow up with: Brodie Rico MD [Physician] - 2 Weeks (Please schedule appointment with Dr. Rico 2 weeks post discharge to discuss outpatient cardiac workup.)
[2016-10-16] MEDS: DONEPEZIL 10 MG TABLET PO SCH (20:46)
[2016-10-16] MEDS: AMITRIPTYLINE 25 MG TABLET PO SCH (20:46)
[2016-10-16] MEDS: PARoxetine 20 MG TABLET PO SCH (20:47)
[2016-10-16] MEDS: ENOXAPARIN 40 MG/0.4 ML SYRINGE SUBCUT SCH (20:47)
[2016-10-16] MEDS: POTASSIUM CHLORIDE 10 MEQ TABLET PO SCH (20:55)
[2016-10-17] MEDS: CIPROFLOXACIN INJ 400 MG in PREMIX 1 EACH IV SCH (00:51)
[2016-10-17] MEDS: NITROGLYCERIN 2% OINT 1 INCH/GM PACK TOP SCH ×2 (00:51→05:34)
[2016-10-17] MEDS: metroNIDAZOLE INJ 500 MG in PREMIX 1 EACH IV SCH ×2 (02:06→08:42)
[2016-10-17 05:45] LABS: Basophils % 0.5 % (0.0-0.8); Eosinophils # 0.1 10*3/uL (0.0-0.87); Eosinophils % 0.9 % (0.00-10.9); Hematocrit 26.7 VOL% (35.7-47.0); Hemoglobin 8.8 GM/DL (12.0-16.0); Immature Granulocytes % 6.5 %; Lymphocytes # 1.7 10*3/uL (1.4-4.0); Mean Corpuscular Hemoglobin 29 PG (27-34); Mean Platelet Volume 10.7 FL (9.6-12.0); Monocytes # 0.5 10*3/uL (0.11-0.8); Monocytes % 6.5 % (1.7-12.7); NRBC # 0.03 10*3/uL; Neutrophils # 4.9 10*3/uL (1.4-7.4); Neutrophils % 63.6 % (38.7-73.9); Platelet Count 107 T/CUMM (130-400); Red Cell Distribution Width 16.1 % (9.3-17.3); White Blood Count 7.7 T/CUMM (4-12)
[2016-10-17 06:12] LABS: Hypochromasia Slight; Lymphocytes 26 % (20-55); Microcytosis 1+; Nucleated Red Blood Cells 1 (0-5); Segmented Neutrophils 70 % (50-85); Total Cells Counted 100
[2016-10-17 06:13] LABS: Platelet Estimate Decreased
[2016-10-17 06:15] LABS: Calcium 7.4 MG/DL (8.5-10.1); Osmolality,Calculated 282.1 MOS/KG (273-304); Potassium 3.6 MMOL/L (3.5-5.1)
--- NOTE | 2016-10-17 08:12 | Discharge Summary ---
Hospital Course - Hospital Course Hospital Course: Patient is 76-year-old female with history of multiple medical problems including hypertension, diabetes, hyperlipidemia, temporal arteritis who was admitted with nausea vomiting and diarrhea. Patient was dehydrated. She was found to have acute diverticulitis. She was started on antibiotics. She was found to have elevated troponins and cardiology saw her. They want to do a workup as an outpatient. She has gradually improved over the last few days. She has not had any fever. Her blood cultures are negative. She is ready to go home. We will continue her on Cipro for another 7 days. Her medications have been adjusted. Her lisinopril has been stopped and metoprolol has been increased. She will be seen by home health care at home. I will see her back in office in 2 weeks. Diagnosis - Discharge Diagnosis (1) Acute diverticulitis Status: Acute (2) Hypertension Status: Chronic (3) Diabetes Status: Chronic (4) Abnormal thyroid function test Status: Acute (5) Temporal arteritis Status: Chronic (6) Alzheimer's dementia Status: Chronic (7) Chronic back pain Status: Chronic Specialty Discharge - Follow Up or Referrals Follow up with: Brodie Rico MD [Physician] - 2 Weeks (Please schedule appointment with Dr. Rico 2 weeks post discharge to discuss outpatient cardiac workup.) Discharge Plan - Discharge Data Disposition: Home Health Service Condition at Discharge: Stable Discharge Diet: advance to your usual diet, diabetic diet Activity: ambulate only with your walker, as per physical therapy - Discharge Medications New Ciprofloxacin Tab [Cipro Tab] 500 mg PO BID #14 tablet Metoprolol Tartrate Tab [Lopressor Tab] 50 mg PO BID #60 tablet Continue Pravastatin Sodium 20 mg PO DAILY Donepezil [Aricept] 10 mg PO BEDTIME Aspirin [Ecotrin] 325 mg PO DAILY Estradiol Tab [Estrace Tab] 1 mg PO DAILY Docusate Sodium Cap [Colace Cap] 100 mg PO BID capsule HYDROcodone/ACETAMIN 5-325 [[place] 5-325] 1 tablet PO Q4H PRN #0 tablet PRN Reason: Pain Moderate (4-7) Insulin Aspart Prot/Asp 70/30 [NovoLOG Mix 70/30] 28 unit SUBCUT BID Potassium Chloride Cap/Tab [K Dur] 10 meq PO DAILY Omeprazole 20 mg PO BID PARoxetine HCl [Paroxetine HCl] 20 mg PO BEDTIME Losartan Potassium 50 mg PO DAILY Amitriptyline [Elavil] 75 mg PO BEDTIME predniSONE TAB [PredniSONE] 5 mg PO DAILY Morphine Ir Tab [Morphine IR Tab] 15 mg PO Q12HR PRN PRN Reason: Pain Discontinued Lisinopril [Lisinopril] 2.5 mg PO BEDTIME Metoprolol Succinate 25 mg PO BEDTIME - Follow Up or Referral Follow Up: Brodie Rico MD [Physician] - 2 Weeks (Please schedule appointment with Dr. Rico 2 weeks post discharge to discuss outpatient cardiac workup.) - Forms/Instructions Additional Discharge Instructions: Appointment as outpatient in 2 weeks. CBC and a BMP. Please call in the medications which have been ordered. I have home health care see the patient for now Exam - Constitutional Vitals: Period Temp Pulse Resp BP Sys/Salmeron Pulse Ox Last 24 Hr 97.7 F-98.6 F 66-74 18-20 114-146/68-76 95-98 Exam: Examination: GENERAL: NAD. HEENT: PERRLA. EOMI. NECK: Neck is supple. CVS: Patient is tachycardic. S1 and S2 are normal. Rhythm is regular RESPIRATORY: Lungs are clear. No rales or rhonchi. ABDOMEN: Soft, nontender. Bowel sounds are present. EXT: No edema. Peripheral pulses are present. SKIN: Warm and dry. MSK: No obvious deformity. Discharge Results Labs on day of discharge: Labs from last 24 hours 10/17/16 10/17/16 10/16/16 05:31 05:31 20:17 WBC 7.7 RBC 3.00 L Hgb 8.8 L Hct 26.7 L MCV 89.0 MCH 29 MCHC 33.0 RDW 16.1 Plt Count 107 L MPV 10.7 Neut % (Auto) 63.6 Lymph % (Auto) 22.0 [place] % (Auto) 6.5 Eos % (Auto) 0.9 Baso % (Auto) 0.5 Neut # (Auto) 4.9 Lymph # (Auto) 1.7 [place] # (Auto) 0.5 Eos # (Auto) 0.1 Baso # (Auto) 0.0 Total Counted 100 Immature Gran % 6.5 Nucleated RBC % 0.4 Immature Gran # 0.50 Segmented Neutrophils 70 Lymphocytes 26 Monocytes 3 Basophils 1.0 H Nucleated RBCs 1 Nucleated RBCs # 0.03 Platelet Estimate Decreased Hypochromasia Slight Microcytosis 1+ Sodium 142 Potassium 3.6 Chloride 109 H Carbon Dioxide 24 Anion Gap 12.6 BUN 8 Creatinine 1.30 H GFR Calculation 55 BUN/Creatinine Ratio 6.00 Glucose 139 H POC Glucose 102 Calculated Osmolality 282.1 Calcium 7.4 L 10/16/16 10/16/16 10/16/16 15:28 11:16 07:29 WBC RBC Hgb Hct MCV MCH MCHC RDW Plt Count MPV Neut % (Auto) Lymph % (Auto) [place] % (Auto) Eos % (Auto) Baso % (Auto) Neut # (Auto) Lymph # (Auto) [place] # (Auto) Eos # (Auto) Baso # (Auto) Total Counted Immature Gran % Nucleated RBC % Immature Gran # Segmented Neutrophils Lymphocytes Monocytes Basophils Nucleated RBCs Nucleated RBCs # Platelet Estimate Hypochromasia Microcytosis Sodium Potassium Chloride Carbon Dioxide Anion Gap BUN Creatinine GFR Calculation BUN/Creatinine Ratio Glucose POC Glucose 179 H 233 H 115 H Calculated Osmolality Calcium DS: Provider Date of admission: 10/15/16 01:03 Primary care physician: . No PCP Attending physician on admission: Sunny North MD Consults: 10/15/16 08:01 Consult to Physician [CONS] Routine Comment: Elevated troponin Consulting Provider: Cardiology - [facility] Consult to Specialist Group: Cardiology Person Notified: JANIE Date Notified: 10/15/16 Time Notified: 08:15 Discharging clinician: Sunny North MD
[2016-10-17] MEDS: ESTRADIOL 1 MG TABLET PO SCH (08:33)
[2016-10-17] MEDS: ASPIRIN EC 325 MG TABLET PO SCH (08:33)
[2016-10-17] MEDS: INSULIN ASPART PROTAMINE/ASPART 70/30 100 UNIT/ML SUBCUT SCH (08:34)
[2016-10-17] MEDS: predniSONE 5 MG TABLET PO SCH (08:34)
[2016-10-17] MEDS: PANTOPRAZOLE 40 MG TABLET PO SCH (08:34)
[2016-10-17] MEDS: PRAVASTATIN 20 MG TABLET PO SCH (08:34)
[2016-10-17] MEDS: DOCUSATE SODIUM 100 MG CAPSULE PO SCH (08:34)
[2016-10-17] MEDS: POTASSIUM CHLORIDE 10 MEQ TABLET PO SCH (08:34)
[2016-10-17] MEDS: METOPROLOL TARTRATE 100 MG TABLET PO SCH (09:00)
[2016-10-17] MEDS ORDERED: LOSARTAN 50 MG TABLET PO SCH (09:00)
[2016-10-17 09:51] VITALS: BP 128/74
[2016-10-17] MEDS: INSULIN REGULAR 100 UNIT/ML SUBCUT SCH (10:46)
--- NOTE | 2016-10-18 15:12 | Physician Query Form ---
CLICK EDIT DOCUMENT TO SELECT QUERY ANSWER --> OK --> SIGN Jane Mon RN Clinical [employer] Psychologist W) [phone] (f) [phone] [email or web address]: Make your selection(s) from the choices in EACH section by typing an "x" and enter comments in the comment section. Please use your independent medical judgment in providing your response. This request does not imply that any particular answer is desired or expected. CLINICAL INDICATORS: (Providers should not edit this section) Based on documentation of "Renal insufficiency" "Chronic kidney disease stage 3 " Creatinine from 1.60 to 1.20. GFR form 56 to 61. Treated with NS bolus and infusion. Clarify which of the following most accurately represents the patient's renal status: ( ) Acute kidney injury (non-traumatic) ( ) Acute renal failure ( ) Acute renal failure with underlying Chronic Kidney Disease (CKD) - please provide stage below ( ) Acute renal failure with pathological renal lesion ( ) Acute renal failure with necrosis ( ) tubular ( ) medullary ( ) cortical ( ) CKD - please provide stage below ( ) End Stage Renal Disease ( ) Acute interstitial nephritis ( ) Hepatorenal syndrome (x ) Other, please specify: Acute kidney injury from dehydration and gastroenteritis ( ) Clinically unable to determine Chronic Kidney Disease Stages Source: National Kidney [employer] Foundation ( ) Stage I (eGFR > or = 90) (x ) Stage II (eGFR 60 - 89) ( ) Stage III (eGFR 30 - 59) ( ) Stage IV (eGFR 15 - 29) ( ) Stage V (eGFR < 15 or dialysis) COMMENTS: PLEASE ALSO DOCUMENT RESPONSE IN PROGRESS NOTES AND/OR DISCHARGE SUMMARY Use of terms such as suspected, likely, or probable (associated with a specific diagnosis that is being evaluated, monitored, or treated as if it exists) are acceptable and can be restated in the discharge summary if not ruled out. MTDD
== END 2016-10-17 11:00 | disposition home health service (06) | DRG 392 ==
LOC: EDSEX → N.ED 16:27 → N.EDINP 10-15 01:03 → N.TELEN 10-15 01:16 → N.2E 10-16 11:25
PROVIDERS: ADMIT Internal Medicine; ATTEND Internal Medicine

== ENCOUNTER 2018-12-15 23:12 | Inpatient (IN) ==
[2018-12-16] MEDS ORDERED: SODIUM CHLORIDE 0.9% 2,000 ML IV STA (00:18)
[2018-12-16 03:49] LABS: Basophils # 0.1 10*3/uL (0.0-0.2); Basophils % 0.3 % (0.0-0.8); Eosinophils % 0.1 % (0.00-10.9); Hematocrit 31.7 VOL% (35.7-47.0); Hemoglobin 10.1 GM/DL (12.0-16.0); Immature Granulocytes % 1.4 %; Immature Granulocytes Absolute 0.31 #; Lymphocytes # 0.6 10*3/uL (1.4-4.0); Lymphocytes % 2.5 % (21.3-54.2); Mean Corpuscular HGB Conc 31.9 GM/DL (32-36); Mean Corpuscular Volume 97.5 FL (87-102); Mean Platelet Volume 10.5 FL (9.6-12.0); Monocytes % 3.6 % (1.7-12.7); NRBC # 0.06 10*3/uL; Neutrophils % 92.1 % (38.7-73.9); Platelet Count 157 T/CUMM (130-400); Red Blood Count 3.25 MC/CUMM (3.8-5.5); Red Cell Distribution Width 15.3 % (9.3-17.3); White Blood Count 22.1 T/CUMM (4-12)
[2018-12-16 04:06] LABS: Alanine Aminotransferase 238 U/L (13-56); Albumin 2.4 G/DL (3.4-5.0); Alkaline Phosphatase 244 U/L (45-117); Aspartate Amino Transferase 356 U/L (0-37); Blood Urea Nitrogen 49 MG/DL (7-18); Glucose 82 MG/DL (74-106); Osmolality,Calculated 292.3 MOS/KG (273-304); Total Protein 6.3 G/DL (6.4-8.3)
[2018-12-16] MEDS ORDERED: CEFEPIME 2,000 MG in SODIUM CHLORIDE 0.9% 100 ML IV STA ×2 (04:16→04:38)
[2018-12-16] MEDS ORDERED: VANCOMYCIN INJ 1,000 MG in SODIUM CHLORIDE 0.9% 250 ML IV STA (04:17)
[2018-12-16 04:27] LABS: Band Neutrophils 6 % (0-10); Eosinophils 1 % (0-10); Hypochromasia 1+; Lymphocytes 5 % (20-55); Nucleated Red Blood Cells 1 (0-5); Platelet Estimate Adequate; Segmented Neutrophils 87 % (50-85); Total Cells Counted 100
[2018-12-16 04:28] LABS: Microcytosis Slight
[2018-12-16] MEDS ORDERED: ONDANSETRON 4 MG/2 ML VIAL IV PRN (04:32)
[2018-12-16] MEDS ORDERED: DEXTROSE 50% 25 GM/50 ML VIAL IV PRN (04:32)
[2018-12-16] MEDS ORDERED: GLUCAGON 1 MG VIAL IM PRN (04:32)
[2018-12-16] MEDS ORDERED: CEFEPIME 2,000 MG VIAL ONE (05:49)
[2018-12-16 08:01] LABS: Apearance,Urine Slightly Hazy (Clear); Bacteria,Urine Occasional /HPF (Few); Bilirubin,Urine Negative (Negative); Blood, Urine Moderate mg/dL (Negative); Glucose,Urine (UA) Negative (Negative); Hyaline Casts,Urine 3 /LPF (0-3); Ketones,Urine Negative (Negative); Mucus,Urine Occasional /LPF (Occasional); Nitrite,Urine Negative (Negative); Protein,Urine Negative; RBC,Urine 1 /HPF (0-4); Squamous Epithelial Cell,Urine Moderate /HPF (0-10); Urine Color Amber (Yellow); Urine Specific Gravity 1.014 (1.001-1.035); WBC,Urine <1 /HPF (0-6)
[2018-12-16] MEDS ORDERED: FAMOTIDINE 20 MG/2 ML VIAL IV SCH (09:00)
[2018-12-16] MEDS: predniSONE 10 MG TABLET PO SCH (10:08)
[2018-12-16] MEDS: PANTOPRAZOLE 40 MG TABLET PO SCH ×2 (10:08→21:26)
[2018-12-16] MEDS: ACETAMINOPHEN 500 MG TABLET PO PRN (10:08)
[2018-12-16 10:37] LABS: Hepatitis B Core IgM Quant 0.08 Index; Hepatitis B Surface Ag Quant < 0.10 Index; Hepatitis B Surface Ag Result Negative (Negative); Hepatitis C Virus Ab Quant 0.11 Index; Hepatitis C Virus Ab Result Negative (Negative)
[2018-12-16] MEDS: SODIUM CHLORIDE 0.9% 1,000 ML IV SCH ×2 (12:02→20:05)
[2018-12-16] MEDS: INSULIN LISPRO 100 UNIT/ML SUBCUT SCH ×2 (12:53→18:06)
[2018-12-16] MEDS: CEFEPIME 1,000 MG in SODIUM CHLORIDE 0.9% 100 ML IV SCH (21:20)
[2018-12-16] MEDS: FERROUS SULFATE 325 MG TABLET PO SCH (21:26)
[2018-12-16] MEDS: DOCUSATE SODIUM 100 MG CAPSULE PO SCH (21:26)
[2018-12-16] MEDS: CLOTRIMAZOLE/BETAMETHASONE CREAM 15 GM TUBE TOP SCH (21:39)
[2018-12-17] MEDS: INSULIN LISPRO 100 UNIT/ML SUBCUT SCH ×5 (00:45→18:24)
[2018-12-17 04:57] LABS: Basophils % 0.2 % (0.0-0.8); Eosinophils # 0.1 10*3/uL (0.0-0.87); Eosinophils % 0.4 % (0.00-10.9); Hematocrit 30.5 VOL% (35.7-47.0); Hemoglobin 9.9 GM/DL (12.0-16.0); Immature Granulocytes % 1.1 %; Immature Granulocytes Absolute 0.18 #; Lymphocytes # 0.8 10*3/uL (1.4-4.0); Lymphocytes % 4.7 % (21.3-54.2); Mean Corpuscular HGB Conc 32.5 GM/DL (32-36); Mean Corpuscular Volume 97.1 FL (87-102); Mean Platelet Volume 11.2 FL (9.6-12.0); Monocytes % 4.6 % (1.7-12.7); NRBC # 0.02 10*3/uL; Platelet Count 127 T/CUMM (130-400); Red Blood Count 3.14 MC/CUMM (3.8-5.5); Red Cell Distribution Width 15.9 % (9.3-17.3)
[2018-12-17] MEDS: ACETAMINOPHEN 500 MG TABLET PO PRN (04:57)
[2018-12-17 05:30] LABS: Albumin 2.4 G/DL (3.4-5.0); Bilirubin,Total 2.2 MG/DL (0.2-1.0); Osmolality,Calculated 290.3 MOS/KG (273-304); Total Protein 6.2 G/DL (6.4-8.3)
[2018-12-17 05:34] LABS: Eosinophils 1 % (0-10); Total Cells Counted 100
[2018-12-17 05:35] LABS: Band Neutrophils 4 % (0-10); Lymphocytes 5 % (20-55); Platelet Estimate Decreased; Segmented Neutrophils 85 % (50-85)
[2018-12-17] MEDS ORDERED: diphenhydrAMINE CAP 25 MG CAPSULE PO PRN (08:34)
[2018-12-17 09:19] LABS: PT Patient Result 11.2 SECS
[2018-12-17] MEDS: ASPIRIN 325 MG TABLET PO SCH (09:57)
[2018-12-17] MEDS: CEFEPIME 1,000 MG in SODIUM CHLORIDE 0.9% 100 ML IV SCH ×2 (09:57→22:15)
[2018-12-17] MEDS: FERROUS SULFATE 325 MG TABLET PO SCH ×2 (09:58→22:11)
[2018-12-17] MEDS: PARoxetine 10 MG TABLET PO SCH (09:58)
[2018-12-17] MEDS: DOCUSATE SODIUM 100 MG CAPSULE PO SCH ×2 (09:58→22:11)
[2018-12-17] MEDS: POTASSIUM CHLORIDE 20 MEQ TABLET PO SCH (09:58)
[2018-12-17] MEDS: AMITRIPTYLINE 50 MG TABLET PO SCH (09:58)
[2018-12-17] MEDS: CLOTRIMAZOLE/BETAMETHASONE CREAM 15 GM TUBE TOP SCH ×2 (09:58→22:11)
[2018-12-17] MEDS: PANTOPRAZOLE 40 MG TABLET PO SCH ×2 (09:59→22:11)
[2018-12-17] MEDS: predniSONE 10 MG TABLET PO SCH (09:59)
[2018-12-17] MEDS: SODIUM CHLORIDE 0.9% 1,000 ML IV SCH (10:52)
[2018-12-18] MEDS: INSULIN LISPRO 100 UNIT/ML SUBCUT SCH ×4 (00:34→18:15)
[2018-12-18 05:31] LABS: Basophils % 0.3 % (0.0-0.8); Eosinophils # 0.1 10*3/uL (0.0-0.87); Eosinophils % 0.6 % (0.00-10.9); Hematocrit 29.7 VOL% (35.7-47.0); Hemoglobin 9.6 GM/DL (12.0-16.0); Immature Granulocytes % 2.1 %; Immature Granulocytes Absolute 0.34 #; Lymphocytes # 0.9 10*3/uL (1.4-4.0); Lymphocytes % 5.4 % (21.3-54.2); Mean Corpuscular HGB Conc 32.3 GM/DL (32-36); Mean Corpuscular Volume 95.5 FL (87-102); Mean Platelet Volume 11.5 FL (9.6-12.0); Monocytes % 3.6 % (1.7-12.7); Platelet Count 145 T/CUMM (130-400); Red Blood Count 3.11 MC/CUMM (3.8-5.5)
[2018-12-18] MEDS: SODIUM CHLORIDE 0.9% 1,000 ML IV SCH ×6 (05:37→20:43)
[2018-12-18 06:05] LABS: Albumin 2.3 G/DL (3.4-5.0); Calcium 8.6 MG/DL (8.5-10.1); Osmolality,Calculated 292.1 MOS/KG (273-304); Total Protein 6.3 G/DL (6.4-8.3)
[2018-12-18] MEDS: POTASSIUM CHLORIDE 20 MEQ TABLET PO SCH (08:46)
[2018-12-18] MEDS: ASPIRIN 325 MG TABLET PO SCH (08:46)
[2018-12-18] MEDS: PANTOPRAZOLE 40 MG TABLET PO SCH ×2 (08:46→20:44)
[2018-12-18] MEDS: PARoxetine 10 MG TABLET PO SCH (08:46)
[2018-12-18] MEDS: CEFEPIME 1,000 MG in SODIUM CHLORIDE 0.9% 100 ML IV SCH ×2 (08:46→20:40)
[2018-12-18] MEDS: predniSONE 10 MG TABLET PO SCH (08:47)
[2018-12-18] MEDS: DOCUSATE SODIUM 100 MG CAPSULE PO SCH ×2 (08:47→20:44)
[2018-12-18] MEDS: AMITRIPTYLINE 50 MG TABLET PO SCH (08:47)
[2018-12-18] MEDS: FERROUS SULFATE 325 MG TABLET PO SCH ×3 (08:47→20:46)
[2018-12-18] MEDS: traMADol 50 MG TABLET PO PRN ×2 (09:00→17:44)
[2018-12-18] MEDS: POLYETHYLENE GLYCOL POWDER 17 GM PACK PO SCH (09:00)
[2018-12-18] MEDS: CLOTRIMAZOLE/BETAMETHASONE CREAM 15 GM TUBE TOP SCH ×2 (09:00→20:47)
[2018-12-18] MEDS: FUROSEMIDE 40 MG TABLET PO SCH (10:34)
[2018-12-18] MEDS: amLODIPine 10 MG TABLET PO SCH (10:34)
[2018-12-18] MEDS: MEMANTINE 5 MG TABLET PO SCH ×2 (10:34→20:44)
[2018-12-18] MEDS: ESTRADIOL 1 MG TABLET PO SCH (10:34)
[2018-12-18] MEDS: METOPROLOL TARTRATE 50 MG TABLET PO SCH (10:34)
[2018-12-19] MEDS: INSULIN LISPRO 100 UNIT/ML SUBCUT SCH ×5 (00:14→23:40)
[2018-12-19 04:40] LABS: Basophils % 0.3 % (0.0-0.8); Eosinophils # 0.1 10*3/uL (0.0-0.87); Eosinophils % 0.9 % (0.00-10.9); Hemoglobin 10.2 GM/DL (12.0-16.0); Immature Granulocytes % 3.6 %; Immature Granulocytes Absolute 0.44 #; Lymphocytes % 8.2 % (21.3-54.2); Mean Corpuscular HGB Conc 32.9 GM/DL (32-36); Mean Corpuscular Volume 93.9 FL (87-102); Monocytes % 5.2 % (1.7-12.7); NRBC # 0.02 10*3/uL; Neutrophils % 81.8 % (38.7-73.9); Platelet Count 160 T/CUMM (130-400); Red Cell Distribution Width 15.5 % (9.3-17.3); White Blood Count 12.2 T/CUMM (4-12)
[2018-12-19 05:09] LABS: Albumin 2.5 G/DL (3.4-5.0); Bilirubin,Total 1.1 MG/DL (0.2-1.0); Osmolality,Calculated 285.4 MOS/KG (273-304); Total Protein 6.7 G/DL (6.4-8.3)
[2018-12-19] MEDS: SODIUM CHLORIDE 0.9% 1,000 ML IV SCH ×2 (05:27→15:37)
[2018-12-19] MEDS: amLODIPine 10 MG TABLET PO SCH (08:44)
[2018-12-19] MEDS: ESTRADIOL 1 MG TABLET PO SCH (08:45)
[2018-12-19] MEDS: PARoxetine 10 MG TABLET PO SCH (08:45)
[2018-12-19] MEDS: DOCUSATE SODIUM 100 MG CAPSULE PO SCH ×2 (08:45→20:29)
[2018-12-19] MEDS: MEMANTINE 5 MG TABLET PO SCH ×2 (08:45→20:28)
[2018-12-19] MEDS: FUROSEMIDE 40 MG TABLET PO SCH (08:46)
[2018-12-19] MEDS: METOPROLOL TARTRATE 50 MG TABLET PO SCH (08:46)
[2018-12-19] MEDS: AMITRIPTYLINE 50 MG TABLET PO SCH (08:46)
[2018-12-19] MEDS: POTASSIUM CHLORIDE 20 MEQ TABLET PO SCH (08:46)
[2018-12-19] MEDS: PANTOPRAZOLE 40 MG TABLET PO SCH ×2 (08:46→20:28)
[2018-12-19] MEDS: predniSONE 10 MG TABLET PO SCH (08:46)
[2018-12-19] MEDS: FERROUS SULFATE 325 MG TABLET PO SCH ×2 (08:46→20:04)
[2018-12-19] MEDS: ASPIRIN 325 MG TABLET PO SCH (08:46)
[2018-12-19] MEDS: POLYETHYLENE GLYCOL POWDER 17 GM PACK PO SCH (08:47)
[2018-12-19] MEDS: CLOTRIMAZOLE/BETAMETHASONE CREAM 15 GM TUBE TOP SCH ×2 (08:48→20:04)
[2018-12-19] MEDS: CEFEPIME 1,000 MG in SODIUM CHLORIDE 0.9% 100 ML IV SCH ×2 (09:32→20:28)
[2018-12-19] MEDS: ACETAMINOPHEN 500 MG TABLET PO PRN ×2 (15:35→21:53)
[2018-12-19] MEDS: LATANOPROST 0.005% OPH SOLN 2.5 ML BOTTLE BOTH EYES SCH (20:28)
[2018-12-20] MEDS: SODIUM CHLORIDE 0.9% 1,000 ML IV SCH (01:55)
[2018-12-20] MEDS: INSULIN LISPRO 100 UNIT/ML SUBCUT SCH ×3 (05:29→17:04)
[2018-12-20] MEDS: amLODIPine 10 MG TABLET PO SCH (08:18)
[2018-12-20] MEDS: ASPIRIN 325 MG TABLET PO SCH (08:18)
[2018-12-20] MEDS: DOCUSATE SODIUM 100 MG CAPSULE PO SCH ×2 (08:18→21:15)
[2018-12-20] MEDS: predniSONE 10 MG TABLET PO SCH (08:18)
[2018-12-20] MEDS: MEMANTINE 5 MG TABLET PO SCH ×2 (08:19→21:15)
[2018-12-20] MEDS: PARoxetine 10 MG TABLET PO SCH (08:19)
[2018-12-20] MEDS: METOPROLOL TARTRATE 50 MG TABLET PO SCH (08:19)
[2018-12-20] MEDS: FERROUS SULFATE 325 MG TABLET PO SCH ×2 (08:19→21:16)
[2018-12-20] MEDS: POTASSIUM CHLORIDE 20 MEQ TABLET PO SCH (08:20)
[2018-12-20] MEDS: FUROSEMIDE 40 MG TABLET PO SCH (08:20)
[2018-12-20] MEDS: ACETAMINOPHEN 500 MG TABLET PO PRN (08:20)
[2018-12-20] MEDS: PANTOPRAZOLE 40 MG TABLET PO SCH ×2 (08:20→21:16)
[2018-12-20] MEDS: ESTRADIOL 1 MG TABLET PO SCH (08:20)
[2018-12-20] MEDS: CEFEPIME 1,000 MG in SODIUM CHLORIDE 0.9% 100 ML IV SCH ×2 (08:23→21:15)
[2018-12-20] MEDS: POLYETHYLENE GLYCOL POWDER 17 GM PACK PO SCH (08:48)
[2018-12-20] MEDS: CLOTRIMAZOLE/BETAMETHASONE CREAM 15 GM TUBE TOP SCH ×2 (11:02→21:16)
[2018-12-20] MEDS: ACETAMINOPHEN 325 MG TABLET PO PRN (15:38)
[2018-12-20] MEDS ORDERED: AMITRIPTYLINE 50 MG TABLET PO SCH (21:00)
[2018-12-20] MEDS: LATANOPROST 0.005% OPH SOLN 2.5 ML BOTTLE BOTH EYES SCH (21:16)
[2018-12-21] MEDS: INSULIN LISPRO 100 UNIT/ML SUBCUT SCH ×4 (01:17→19:06)
[2018-12-21 05:09] LABS: Albumin 2.5 G/DL (3.4-5.0); Bilirubin,Total 0.9 MG/DL (0.2-1.0); Calcium 9.1 MG/DL (8.5-10.1); Osmolality,Calculated 281.7 MOS/KG (273-304); Total Protein 6.5 G/DL (6.4-8.3)
[2018-12-21] MEDS: PANTOPRAZOLE 40 MG TABLET PO SCH ×2 (08:30→20:42)
[2018-12-21] MEDS: METOPROLOL TARTRATE 50 MG TABLET PO SCH (08:30)
[2018-12-21] MEDS: POLYETHYLENE GLYCOL POWDER 17 GM PACK PO SCH (08:30)
[2018-12-21] MEDS: ESTRADIOL 1 MG TABLET PO SCH (08:30)
[2018-12-21] MEDS: DOCUSATE SODIUM 100 MG CAPSULE PO SCH ×2 (08:30→20:42)
[2018-12-21] MEDS: FUROSEMIDE 40 MG TABLET PO SCH (08:30)
[2018-12-21] MEDS: predniSONE 10 MG TABLET PO SCH (08:30)
[2018-12-21] MEDS: ASPIRIN 325 MG TABLET PO SCH (08:30)
[2018-12-21] MEDS: MEMANTINE 5 MG TABLET PO SCH ×2 (08:31→20:42)
[2018-12-21] MEDS: amLODIPine 10 MG TABLET PO SCH (08:31)
[2018-12-21] MEDS: FERROUS SULFATE 325 MG TABLET PO SCH ×2 (08:31→20:42)
[2018-12-21] MEDS: POTASSIUM CHLORIDE 20 MEQ TABLET PO SCH (08:31)
[2018-12-21] MEDS: INSULIN ASPART PROTAMINE/ASPART 70/30 100 UNIT/ML SUBCUT SCH ×2 (08:41→22:45)
[2018-12-21] MEDS: PARoxetine 10 MG TABLET PO SCH (08:41)
[2018-12-21] MEDS: CEFEPIME 1,000 MG in SODIUM CHLORIDE 0.9% 100 ML IV SCH ×2 (08:42→16:20)
[2018-12-21] MEDS: ENOXAPARIN 30 MG/0.3 ML SYRINGE SUBCUT SCH (09:16)
[2018-12-21] MEDS: CLOTRIMAZOLE/BETAMETHASONE CREAM 15 GM TUBE TOP SCH (09:17)
[2018-12-21] MEDS: LATANOPROST 0.005% OPH SOLN 2.5 ML BOTTLE BOTH EYES SCH (20:41)
[2018-12-21] MEDS: AMITRIPTYLINE 75 MG TABLET PO SCH (20:42)
[2018-12-22] MEDS: CEFEPIME 1,000 MG in SODIUM CHLORIDE 0.9% 100 ML IV SCH ×3 (00:05→16:53)
[2018-12-22] MEDS: CLOTRIMAZOLE/BETAMETHASONE CREAM 15 GM TUBE TOP SCH ×3 (00:28→21:04)
[2018-12-22] MEDS: INSULIN LISPRO 100 UNIT/ML SUBCUT SCH ×4 (00:30→18:26)
[2018-12-22 05:01] LABS: Basophils # 0.1 10*3/uL (0.0-0.2); Basophils % 0.4 % (0.0-0.8); Eosinophils # 0.1 10*3/uL (0.0-0.87); Eosinophils % 0.8 % (0.00-10.9); Hematocrit 29.3 VOL% (35.7-47.0); Hemoglobin 9.5 GM/DL (12.0-16.0); Immature Granulocytes % 5.9 %; Immature Granulocytes Absolute 0.75 #; Lymphocytes # 1.9 10*3/uL (1.4-4.0); Mean Corpuscular HGB Conc 32.4 GM/DL (32-36); Mean Corpuscular Volume 95.1 FL (87-102); Mean Platelet Volume 10.8 FL (9.6-12.0); NRBC # 0.03 10*3/uL; Neutrophils % 72.9 % (38.7-73.9); Platelet Count 177 T/CUMM (130-400); Red Blood Count 3.08 MC/CUMM (3.8-5.5); Red Cell Distribution Width 15.4 % (9.3-17.3); White Blood Count 12.7 T/CUMM (4-12)
[2018-12-22 05:23] LABS: Eosinophils 2 % (0-10); Hypochromasia 1+; Lymphocytes 16 % (20-55); Platelet Estimate Adequate; Segmented Neutrophils 77 % (50-85); Total Cells Counted 100
[2018-12-22 06:47] LABS: Calcium 8.7 MG/DL (8.5-10.1); Osmolality,Calculated 279.7 MOS/KG (273-304)
[2018-12-22] MEDS: ENOXAPARIN 30 MG/0.3 ML SYRINGE SUBCUT SCH (08:26)
[2018-12-22] MEDS: DOCUSATE SODIUM 100 MG CAPSULE PO SCH ×2 (08:27→21:03)
[2018-12-22] MEDS: METOPROLOL TARTRATE 50 MG TABLET PO SCH (08:27)
[2018-12-22] MEDS: POTASSIUM CHLORIDE 20 MEQ TABLET PO SCH (08:27)
[2018-12-22] MEDS: predniSONE 10 MG TABLET PO SCH (08:27)
[2018-12-22] MEDS: ESTRADIOL 1 MG TABLET PO SCH (08:27)
[2018-12-22] MEDS: PANTOPRAZOLE 40 MG TABLET PO SCH ×2 (08:27→21:03)
[2018-12-22] MEDS: ASPIRIN 325 MG TABLET PO SCH (08:27)
[2018-12-22] MEDS: MEMANTINE 5 MG TABLET PO SCH ×2 (08:27→21:03)
[2018-12-22] MEDS: FERROUS SULFATE 325 MG TABLET PO SCH ×2 (08:27→21:03)
[2018-12-22] MEDS: PARoxetine 10 MG TABLET PO SCH (08:27)
[2018-12-22] MEDS: amLODIPine 10 MG TABLET PO SCH (08:27)
[2018-12-22] MEDS: FUROSEMIDE 40 MG TABLET PO SCH (08:27)
[2018-12-22] MEDS: POLYETHYLENE GLYCOL POWDER 17 GM PACK PO SCH (08:28)
[2018-12-22] MEDS: INSULIN ASPART PROTAMINE/ASPART 70/30 100 UNIT/ML SUBCUT SCH ×2 (08:37→21:04)
[2018-12-22] MEDS: AMITRIPTYLINE 75 MG TABLET PO SCH (21:03)
[2018-12-22] MEDS: LATANOPROST 0.005% OPH SOLN 2.5 ML BOTTLE BOTH EYES SCH (21:04)
[2018-12-23] MEDS: CEFEPIME 1,000 MG in SODIUM CHLORIDE 0.9% 100 ML IV SCH ×3 (00:05→15:44)
[2018-12-23] MEDS: INSULIN LISPRO 100 UNIT/ML SUBCUT SCH ×4 (05:50→18:53)
[2018-12-23] MEDS: ACETAMINOPHEN 325 MG TABLET PO PRN (07:54)
[2018-12-23] MEDS: ENOXAPARIN 30 MG/0.3 ML SYRINGE SUBCUT SCH (09:59)
[2018-12-23] MEDS: PANTOPRAZOLE 40 MG TABLET PO SCH (10:00)
[2018-12-23] MEDS: METOPROLOL TARTRATE 50 MG TABLET PO SCH (10:00)
[2018-12-23] MEDS: amLODIPine 10 MG TABLET PO SCH (10:00)
[2018-12-23] MEDS: PARoxetine 10 MG TABLET PO SCH (10:00)
[2018-12-23] MEDS: ASPIRIN 325 MG TABLET PO SCH (10:00)
[2018-12-23] MEDS: CLOTRIMAZOLE/BETAMETHASONE CREAM 15 GM TUBE TOP SCH (10:01)
[2018-12-23] MEDS: MEMANTINE 5 MG TABLET PO SCH (10:01)
[2018-12-23] MEDS: FERROUS SULFATE 325 MG TABLET PO SCH (10:01)
[2018-12-23] MEDS: POLYETHYLENE GLYCOL POWDER 17 GM PACK PO SCH (10:01)
[2018-12-23] MEDS: predniSONE 10 MG TABLET PO SCH (10:01)
[2018-12-23] MEDS: FUROSEMIDE 40 MG TABLET PO SCH (10:02)
[2018-12-23] MEDS: INSULIN ASPART PROTAMINE/ASPART 70/30 100 UNIT/ML SUBCUT SCH (10:02)
[2018-12-23] MEDS: POTASSIUM CHLORIDE 20 MEQ TABLET PO SCH (10:02)
[2018-12-23] MEDS: ESTRADIOL 1 MG TABLET PO SCH (10:13)
[2018-12-23] MEDS: DOCUSATE SODIUM 100 MG CAPSULE PO SCH (10:14)
[2018-12-24] MEDS: AMITRIPTYLINE 75 MG TABLET PO SCH (00:02)
[2018-12-24] MEDS: INSULIN ASPART PROTAMINE/ASPART 70/30 100 UNIT/ML SUBCUT SCH ×2 (00:02→08:41)
[2018-12-24] MEDS: MEMANTINE 5 MG TABLET PO SCH ×2 (00:02→08:39)
[2018-12-24] MEDS: LATANOPROST 0.005% OPH SOLN 2.5 ML BOTTLE BOTH EYES SCH (00:03)
[2018-12-24] MEDS: FERROUS SULFATE 325 MG TABLET PO SCH ×2 (00:03→08:40)
[2018-12-24] MEDS: PANTOPRAZOLE 40 MG TABLET PO SCH ×2 (00:03→08:39)
[2018-12-24] MEDS: CLOTRIMAZOLE/BETAMETHASONE CREAM 15 GM TUBE TOP SCH ×2 (00:03→08:41)
[2018-12-24] MEDS: DOCUSATE SODIUM 100 MG CAPSULE PO SCH ×2 (00:04→11:00)
[2018-12-24] MEDS: CEFEPIME 1,000 MG in SODIUM CHLORIDE 0.9% 100 ML IV SCH ×2 (00:05→11:00)
[2018-12-24] MEDS: INSULIN LISPRO 100 UNIT/ML SUBCUT SCH ×2 (00:06→05:08)
[2018-12-24 05:23] LABS: Basophils # 0.1 10*3/uL (0.0-0.2); Basophils % 0.4 % (0.0-0.8); Eosinophils # 0.1 10*3/uL (0.0-0.87); Eosinophils % 0.9 % (0.00-10.9); Hematocrit 29.9 VOL% (35.7-47.0); Hemoglobin 9.7 GM/DL (12.0-16.0); Immature Granulocytes % 4.1 %; Immature Granulocytes Absolute 0.48 #; Lymphocytes # 1.8 10*3/uL (1.4-4.0); Lymphocytes % 15.4 % (21.3-54.2); Mean Corpuscular HGB Conc 32.4 GM/DL (32-36); Mean Corpuscular Volume 96.5 FL (87-102); Mean Platelet Volume 10.9 FL (9.6-12.0); Monocytes % 5.7 % (1.7-12.7); NRBC # 0.02 10*3/uL; Neutrophils % 73.5 % (38.7-73.9); Platelet Count 193 T/CUMM (130-400); Red Cell Distribution Width 15.4 % (9.3-17.3); White Blood Count 11.7 T/CUMM (4-12)
[2018-12-24 05:56] LABS: Calcium 8.7 MG/DL (8.5-10.1); Osmolality,Calculated 286.5 MOS/KG (273-304)
[2018-12-24 08:27] VITALS: BP 157/95
[2018-12-24] MEDS: PARoxetine 10 MG TABLET PO SCH (08:39)
[2018-12-24] MEDS: ASPIRIN 325 MG TABLET PO SCH (08:39)
[2018-12-24] MEDS: FUROSEMIDE 40 MG TABLET PO SCH (08:40)
[2018-12-24] MEDS: predniSONE 10 MG TABLET PO SCH (08:40)
[2018-12-24] MEDS: ESTRADIOL 1 MG TABLET PO SCH (08:40)
[2018-12-24] MEDS: amLODIPine 10 MG TABLET PO SCH (08:40)
[2018-12-24] MEDS: POTASSIUM CHLORIDE 20 MEQ TABLET PO SCH (08:40)
[2018-12-24] MEDS: METOPROLOL TARTRATE 50 MG TABLET PO SCH (08:40)
[2018-12-24] MEDS: ENOXAPARIN 30 MG/0.3 ML SYRINGE SUBCUT SCH (08:41)
[2018-12-24] MEDS: POLYETHYLENE GLYCOL POWDER 17 GM PACK PO SCH (10:59)
== END 2018-12-24 11:15 | disposition home health service (06) | DRG 872 ==
LOC: EDUNIT# → N.ED 23:12 → N.EDINP 12-16 04:32 → N.TELEN 12-16 05:27
PROVIDERS: ADMIT Internal Medicine; ATTEND Internal Medicine

== ENCOUNTER 2019-05-07 16:46 | Inpatient (IN) ==
[2019-05-07 19:18] LABS: Basophils % 0.3 % (0.0-0.8); Eosinophils % 0.2 % (0.00-10.9); Hemoglobin 10.4 GM/DL (12.0-16.0); Immature Granulocytes % 4.1 %; Lymphocytes # 0.7 10*3/uL (1.4-4.0); Lymphocytes % 5.5 % (21.3-54.2); Mean Corpuscular HGB Conc 32.5 GM/DL (32-36); Mean Platelet Volume 10.5 FL (9.6-12.0); NRBC # 0.02 10*3/uL; Neutrophils % 85.9 % (38.7-73.9); Platelet Count 179 T/CUMM (130-400); Red Cell Distribution Width 15.5 % (9.3-17.3); White Blood Count 12.1 T/CUMM (4-12)
[2019-05-07 19:25] LABS: Apearance,Urine CLEAR (Clear); Bilirubin,Urine Negative (Negative); Blood, Urine Negative (Negative); Glucose,Urine (UA) 150 mg/dL (Negative); Hyaline Casts,Urine 11 /LPF (0-3); Ketones,Urine Negative (Negative); Mucus,Urine Occasional /LPF (Occasional); Nitrite,Urine Negative (Negative); Protein,Urine Negative; RBC,Urine 1 /HPF (0-4); Squamous Epithelial Cell,Urine Occasional /HPF (0-10); Urine Color Yellow (Yellow); Urine Specific Gravity 1.012 (1.001-1.035); Urine Urobilinogen < 2.0 EU/DL (0.2-1.0); WBC,Urine 1 /HPF (0-6)
[2019-05-07 19:34] LABS: Albumin 2.9 G/DL (3.4-5.0); Bilirubin,Total 0.5 MG/DL (0.2-1.0); Calcium 8.9 MG/DL (8.5-10.1); Osmolality,Calculated 302.2 MOS/KG (273-304); Total Protein 7.2 G/DL (6.4-8.3)
[2019-05-07] MEDS ORDERED: SODIUM CHLORIDE 0.9% 1,000 ML IV STA (20:38)
[2019-05-07] MEDS ORDERED: INSULIN REGULAR 100 UNIT/ML IV STA (20:38)
[2019-05-07] MEDS ORDERED: INSULIN REGULAR 100 UNIT/ML ONE (20:45)
[2019-05-07] MEDS: SODIUM CHLORIDE 0.9% 1,000 ML IV SCH (22:00)
[2019-05-07] MEDS ORDERED: ONDANSETRON 4 MG/2 ML VIAL IV PRN (22:07)
[2019-05-07] MEDS ORDERED: DEXTROSE 50% 25 GM/50 ML VIAL IV PRN (22:07)
[2019-05-07] MEDS ORDERED: GLUCAGON 1 MG VIAL IM PRN (22:07)
[2019-05-08] MEDS: DOCUSATE SODIUM 100 MG CAPSULE PO SCH ×3 (00:10→21:21)
[2019-05-08] MEDS: INSULIN REGULAR 100 UNIT/ML SUBCUT SCH ×4 (00:47→18:05)
[2019-05-08 05:56] LABS: Calcium 8.8 MG/DL (8.5-10.1); Osmolality,Calculated 301.4 MOS/KG (273-304)
[2019-05-08] MEDS: SODIUM CHLORIDE 0.9% 1,000 ML IV SCH ×3 (06:10→21:21)
[2019-05-08] MEDS: PANTOPRAZOLE 40 MG TABLET PO SCH (08:54)
[2019-05-08] MEDS: SIMVASTATIN 10 MG TABLET PO SCH (12:21)
[2019-05-08] MEDS: METOPROLOL TARTRATE 50 MG TABLET PO SCH (12:21)
[2019-05-08] MEDS: DICYCLOMINE 20 MG TABLET PO SCH ×2 (14:57→21:21)
[2019-05-08] MEDS: ACETAMINOPHEN 325 MG TABLET PO PRN (16:23)
[2019-05-08] MEDS ORDERED: NON-FORMULARY MEDICATION (Omeprazole 20 MG) PO SCH (21:00)
[2019-05-08] MEDS: MEMANTINE 5 MG TABLET PO SCH (21:20)
[2019-05-08] MEDS: AMITRIPTYLINE 75 MG TABLET PO SCH (21:21)
[2019-05-08] MEDS: INSULIN ASPART PROTAMINE/ASPART 70/30 100 UNIT/ML SUBCUT SCH (21:23)
[2019-05-09] MEDS: INSULIN REGULAR 100 UNIT/ML SUBCUT SCH ×4 (01:00→18:20)
[2019-05-09] MEDS: SODIUM CHLORIDE 0.9% 1,000 ML IV SCH ×4 (05:15→21:30)
[2019-05-09] MEDS: INSULIN ASPART PROTAMINE/ASPART 70/30 100 UNIT/ML SUBCUT SCH ×2 (09:11→20:38)
[2019-05-09] MEDS: MEMANTINE 5 MG TABLET PO SCH ×2 (09:12→20:38)
[2019-05-09] MEDS: predniSONE 10 MG TABLET PO SCH (09:12)
[2019-05-09] MEDS: ASPIRIN 325 MG TABLET PO SCH (09:13)
[2019-05-09] MEDS: POTASSIUM CHLORIDE 20 MEQ TABLET PO SCH (09:13)
[2019-05-09] MEDS: SIMVASTATIN 10 MG TABLET PO SCH (09:13)
[2019-05-09] MEDS: LORATADINE 10 MG TABLET PO SCH (09:13)
[2019-05-09] MEDS: amLODIPine 10 MG TABLET PO SCH (09:13)
[2019-05-09] MEDS: LOSARTAN 50 MG TABLET PO SCH (09:13)
[2019-05-09] MEDS: PARoxetine 10 MG TABLET PO SCH (09:13)
[2019-05-09] MEDS: DICYCLOMINE 20 MG TABLET PO SCH ×3 (09:13→20:38)
[2019-05-09] MEDS: PANTOPRAZOLE 40 MG TABLET PO SCH (09:13)
[2019-05-09] MEDS: METOPROLOL TARTRATE 50 MG TABLET PO SCH (09:13)
[2019-05-09] MEDS: ESTRADIOL 1 MG TABLET PO SCH (09:13)
[2019-05-09 12:31] LABS: Calcium 8.4 MG/DL (8.5-10.1)
[2019-05-09] MEDS: DOCUSATE SODIUM 100 MG CAPSULE PO SCH ×2 (13:28→20:38)
[2019-05-09] MEDS: ACETAMINOPHEN 325 MG TABLET PO PRN (20:37)
[2019-05-09] MEDS: AMITRIPTYLINE 75 MG TABLET PO SCH (20:38)
[2019-05-10] MEDS: INSULIN REGULAR 100 UNIT/ML SUBCUT SCH ×4 (00:12→17:53)
[2019-05-10] MEDS: SODIUM CHLORIDE 0.9% 1,000 ML IV SCH ×3 (05:30→23:39)
[2019-05-10] MEDS: INSULIN ASPART PROTAMINE/ASPART 70/30 100 UNIT/ML SUBCUT SCH ×2 (08:01→21:26)
[2019-05-10] MEDS: PARoxetine 10 MG TABLET PO SCH (08:45)
[2019-05-10] MEDS: ESTRADIOL 1 MG TABLET PO SCH (08:45)
[2019-05-10] MEDS: MEMANTINE 5 MG TABLET PO SCH ×2 (08:45→21:26)
[2019-05-10] MEDS: predniSONE 10 MG TABLET PO SCH (08:45)
[2019-05-10] MEDS: PANTOPRAZOLE 40 MG TABLET PO SCH (08:46)
[2019-05-10] MEDS: amLODIPine 10 MG TABLET PO SCH (08:46)
[2019-05-10] MEDS: DICYCLOMINE 20 MG TABLET PO SCH ×3 (08:46→21:26)
[2019-05-10] MEDS: METOPROLOL TARTRATE 50 MG TABLET PO SCH (08:46)
[2019-05-10] MEDS: LORATADINE 10 MG TABLET PO SCH (08:46)
[2019-05-10] MEDS: ASPIRIN 325 MG TABLET PO SCH (08:46)
[2019-05-10] MEDS: SIMVASTATIN 10 MG TABLET PO SCH (08:46)
[2019-05-10] MEDS: DOCUSATE SODIUM 100 MG CAPSULE PO SCH ×2 (08:46→21:26)
[2019-05-10] MEDS: LOSARTAN 50 MG TABLET PO SCH (08:46)
[2019-05-10 08:47] LABS: Basophils # 0.1 10*3/uL (0.0-0.2); Basophils % 0.6 % (0.0-0.8); Eosinophils # 0.1 10*3/uL (0.0-0.87); Eosinophils % 1.1 % (0.00-10.9); Hematocrit 29.2 VOL% (35.7-47.0); Hemoglobin 9.6 GM/DL (12.0-16.0); Immature Granulocytes % 7.4 %; Immature Granulocytes Absolute 0.64 #; Lymphocytes # 1.5 10*3/uL (1.4-4.0); Lymphocytes % 16.8 % (21.3-54.2); Mean Corpuscular HGB Conc 32.9 GM/DL (32-36); Mean Corpuscular Volume 99.3 FL (87-102); Mean Platelet Volume 10.5 FL (9.6-12.0); Monocytes % 6.9 % (1.7-12.7); NRBC # 0.02 10*3/uL; Neutrophils % 67.2 % (38.7-73.9); Platelet Count 142 T/CUMM (130-400); Red Blood Count 2.94 MC/CUMM (3.8-5.5); White Blood Count 8.7 T/CUMM (4-12)
[2019-05-10 09:10] LABS: Calcium 7.9 MG/DL (8.5-10.1); Osmolality,Calculated 284.5 MOS/KG (273-304)
[2019-05-10] MEDS: POTASSIUM CHLORIDE 20 MEQ TABLET PO SCH (09:30)
[2019-05-10 09:37] LABS: Band Neutrophils 1 % (0-10); Hypochromasia Slight; Lymphocytes 19 % (20-55); Myelocytes 1 %; Segmented Neutrophils 69 % (50-85); Total Cells Counted 100
[2019-05-10 09:38] LABS: Macrocytosis Slight; Platelet Estimate Adequate
[2019-05-10] MEDS: SKIN HEALING OINT (AQUAPHOR) 50 GM TUBE TOP SCH (17:54)
[2019-05-10] MEDS: AMITRIPTYLINE 75 MG TABLET PO SCH (21:26)
[2019-05-11] MEDS: INSULIN REGULAR 100 UNIT/ML SUBCUT SCH ×4 (01:24→20:43)
[2019-05-11 04:46] LABS: Basophils # 0.1 10*3/uL (0.0-0.2); Basophils % 0.8 % (0.0-0.8); Eosinophils # 0.1 10*3/uL (0.0-0.87); Hemoglobin 9.4 GM/DL (12.0-16.0); Immature Granulocytes % 9.3 %; Immature Granulocytes Absolute 0.93 #; Lymphocytes # 1.5 10*3/uL (1.4-4.0); Lymphocytes % 14.9 % (21.3-54.2); Mean Corpuscular HGB Conc 32.4 GM/DL (32-36); Mean Corpuscular Volume 99.3 FL (87-102); Monocytes % 6.3 % (1.7-12.7); NRBC # 0.03 10*3/uL; Neutrophils % 67.7 % (38.7-73.9); Platelet Count 144 T/CUMM (130-400); Red Blood Count 2.92 MC/CUMM (3.8-5.5); Red Cell Distribution Width 15.1 % (9.3-17.3)
[2019-05-11 04:54] LABS: Calcium 7.7 MG/DL (8.5-10.1); Osmolality,Calculated 282.1 MOS/KG (273-304)
[2019-05-11 05:19] LABS: Anisocytosis 1+; Band Neutrophils 5 % (0-10); Eosinophils 1 % (0-10); Lymphocytes 13 % (20-55); Myelocytes 1 %; Segmented Neutrophils 77 % (50-85); Tear Drop Cells Few; Total Cells Counted 100
[2019-05-11 05:20] LABS: Platelet Estimate Normal
[2019-05-11] MEDS: PARoxetine 10 MG TABLET PO SCH (08:44)
[2019-05-11] MEDS: DOCUSATE SODIUM 100 MG CAPSULE PO SCH ×2 (08:45→20:56)
[2019-05-11] MEDS: ASPIRIN 325 MG TABLET PO SCH (08:45)
[2019-05-11] MEDS: MEMANTINE 5 MG TABLET PO SCH ×2 (08:45→20:56)
[2019-05-11] MEDS: PANTOPRAZOLE 40 MG TABLET PO SCH (08:46)
[2019-05-11] MEDS: LOSARTAN 50 MG TABLET PO SCH (08:47)
[2019-05-11] MEDS: SIMVASTATIN 10 MG TABLET PO SCH (08:47)
[2019-05-11] MEDS: METOPROLOL TARTRATE 50 MG TABLET PO SCH (08:47)
[2019-05-11] MEDS: DICYCLOMINE 20 MG TABLET PO SCH ×3 (08:47→20:56)
[2019-05-11] MEDS: ESTRADIOL 1 MG TABLET PO SCH (08:47)
[2019-05-11] MEDS: LORATADINE 10 MG TABLET PO SCH (08:47)
[2019-05-11] MEDS: amLODIPine 10 MG TABLET PO SCH (08:48)
[2019-05-11] MEDS: predniSONE 10 MG TABLET PO SCH (08:48)
[2019-05-11] MEDS: POTASSIUM CHLORIDE 20 MEQ TABLET PO SCH (08:48)
[2019-05-11] MEDS: SKIN HEALING OINT (AQUAPHOR) 50 GM TUBE TOP SCH (08:51)
[2019-05-11] MEDS: SODIUM CHLORIDE 0.9% 1,000 ML IV SCH ×2 (08:54→21:46)
[2019-05-11] MEDS: INSULIN ASPART PROTAMINE/ASPART 70/30 100 UNIT/ML SUBCUT SCH ×2 (09:53→20:57)
[2019-05-11] MEDS: AMITRIPTYLINE 75 MG TABLET PO SCH (20:56)
[2019-05-12] MEDS: INSULIN REGULAR 100 UNIT/ML SUBCUT SCH ×3 (01:57→12:12)
[2019-05-12] MEDS: METOPROLOL TARTRATE 50 MG TABLET PO SCH (08:45)
[2019-05-12] MEDS: PARoxetine 10 MG TABLET PO SCH (08:45)
[2019-05-12] MEDS: amLODIPine 10 MG TABLET PO SCH (08:45)
[2019-05-12] MEDS: PANTOPRAZOLE 40 MG TABLET PO SCH (08:45)
[2019-05-12] MEDS: LOSARTAN 50 MG TABLET PO SCH (08:46)
[2019-05-12] MEDS: POTASSIUM CHLORIDE 20 MEQ TABLET PO SCH (08:46)
[2019-05-12] MEDS: INSULIN ASPART PROTAMINE/ASPART 70/30 100 UNIT/ML SUBCUT SCH (08:46)
[2019-05-12] MEDS: ESTRADIOL 1 MG TABLET PO SCH (08:46)
[2019-05-12] MEDS: MEMANTINE 5 MG TABLET PO SCH (08:46)
[2019-05-12] MEDS: predniSONE 10 MG TABLET PO SCH (08:46)
[2019-05-12] MEDS: SIMVASTATIN 10 MG TABLET PO SCH (08:46)
[2019-05-12] MEDS: ASPIRIN 325 MG TABLET PO SCH (08:46)
[2019-05-12] MEDS: LORATADINE 10 MG TABLET PO SCH (08:46)
[2019-05-12] MEDS: DICYCLOMINE 20 MG TABLET PO SCH (08:46)
[2019-05-12] MEDS: DOCUSATE SODIUM 100 MG CAPSULE PO SCH (08:46)
[2019-05-12] MEDS: SKIN HEALING OINT (AQUAPHOR) 50 GM TUBE TOP SCH (08:49)
[2019-05-12 11:45] VITALS: BP 156/97
[2019-05-12] MEDS: SODIUM CHLORIDE 0.9% 1,000 ML IV SCH (13:01)
== END 2019-05-12 13:39 | disposition home health service (06) | DRG 684 ==
LOC: N.ED 16:46 → N.EDINP 20:45 → N.3E 21:00
PROVIDERS: ADMIT Internal Medicine; ATTEND Internal Medicine

== ENCOUNTER 2020-08-06 09:14 | Inpatient (IN) ==
[2020-08-06 09:52] LABS: Basophils % 0.1 % (0.0-0.8); Eosinophils % 0.1 % (0.00-10.9); Hematocrit 36.5 VOL% (35.7-47.0); Hemoglobin 12.5 GM/DL (12.0-16.0); Immature Granulocytes % 1.3 %; Immature Granulocytes Absolute 0.19 #; Lymphocytes # 0.7 10*3/uL (1.4-4.0); Lymphocytes % 4.9 % (21.3-54.2); Mean Corpuscular HGB Conc 34.2 GM/DL (32-36); Mean Corpuscular Volume 94.3 FL (87-102); Mean Platelet Volume 11.5 FL (9.6-12.0); Monocytes % 4.8 % (1.7-12.7); NRBC # 0.03 10*3/uL; Neutrophils % 88.8 % (38.7-73.9); Platelet Count 147 T/CUMM (130-400); Red Blood Count 3.87 MC/CUMM (3.8-5.5); Red Cell Distribution Width 15.2 % (9.3-17.3); White Blood Count 14.9 T/CUMM (4-12)
[2020-08-06] MEDS ORDERED: SODIUM CHLORIDE 0.9% 1,000 ML IV STA ×2 (09:54→10:16)
[2020-08-06 09:59] LABS: PT Patient Result 10.3 SECS (9.8-11.9)
[2020-08-06 10:00] LABS: Bilirubin,Urine Negative (Negative); Blood, Urine Moderate mg/dL (Negative); Glucose,Urine (UA) >=500 mg/dL (Negative); Ketones,Urine 5 mg/dL (Negative); Mucus,Urine Occasional /LPF (Occasional); Nitrite,Urine Negative (Negative); Protein,Urine Negative; Squamous Epithelial Cell,Urine Occasional /HPF (0-10); Urine Appearance Slightly Hazy (Clear); Urine Color Yellow (Yellow); Urine Specific Gravity 1.018 (1.001-1.035); Urine Urobilinogen < 2.0 EU/DL (0.2-1.0); WBC,Urine <1 /HPF (0-6)
[2020-08-06 10:03] LABS: Albumin 3.2 G/DL (3.4-5.0); Bilirubin,Total 0.8 MG/DL (0.2-1.0); Calcium 8.5 MG/DL (8.5-10.1); Osmolality,Calculated 321.1 MOS/KG (273-304); Potassium 5.1 MMOL/L (3.5-5.1); Total Protein 6.8 G/DL (5.0-7.5)
[2020-08-06 10:11] LABS: Lymphocytes 7 % (20-55); Platelet Estimate Adequate; Segmented Neutrophils 92 % (50-85); Total Cells Counted 100
[2020-08-06 10:11] LABS: ABG Base Excess -0.9 MMOL/L (-2.5-2.5); ABG HCO3 23.5 MMOL/L (20-26); ABG PCO2 52.4 MM HG (35-48); ABG PH 7.307 (7.35-7.45); ABG PO2 69.6 MM HG (80-95); ABG TCO2 23.6 MMOL/L (23-27)
[2020-08-06] MEDS ORDERED: INSULIN REGULAR 100 UNIT/ML IV ONE (10:16)
[2020-08-06 10:22] LABS: Barbiturates Screen,Urine Negative (Negative); Benzodiazepines Screen,Urine Negative (Negative); Cannabinoid Screen,Urine Negative (Negative); Opiate Screen,Urine Negative (Negative); Phencyclidine Screen,Urine Negative (Negative)
[2020-08-06] MEDS ORDERED: cefTRIAXone 1,000 MG in SODIUM CHLORIDE 0.9% 100 ML IV STA (10:34)
[2020-08-06] MEDS ORDERED: ONDANSETRON 4 MG/2 ML VIAL IV PRN (10:35)
[2020-08-06] MEDS ORDERED: DEXTROSE 50% 25 GM/50 ML VIAL IV PRN (10:35)
[2020-08-06] MEDS ORDERED: GLUCAGON 1 MG VIAL IM PRN (10:35)
[2020-08-06] MEDS ORDERED: DOCUSATE SODIUM 100 MG CAPSULE PO PRN (10:39)
[2020-08-06] MEDS: SODIUM CHLORIDE 0.9% 1,000 ML IV SCH (11:43)
[2020-08-06] MEDS: ENOXAPARIN 30 MG/0.3 ML SYRINGE SUBCUT SCH (12:32)
[2020-08-06] MEDS: INSULIN LISPRO 100 UNIT/ML SUBCUT SCH ×5 (12:32→21:32)
[2020-08-06] MEDS: LATANOPROST 0.005% OPH SOLN 2.5 ML BOTTLE BOTH EYES SCH (21:32)
[2020-08-06] MEDS: predniSONE 10 MG TABLET PO SCH (21:32)
[2020-08-06] MEDS: DOCUSATE SODIUM 100 MG CAPSULE PO SCH (21:32)
[2020-08-06] MEDS: DONEPEZIL 10 MG TABLET PO SCH (21:32)
[2020-08-07] MEDS: SODIUM CHLORIDE 0.9% 1,000 ML IV SCH ×3 (05:21→16:07)
[2020-08-07 06:06] LABS: Basophils % 0.1 % (0.0-0.8); Eosinophils % 0.2 % (0.00-10.9); Hematocrit 33.7 VOL% (35.7-47.0); Hemoglobin 11.4 GM/DL (12.0-16.0); Immature Granulocytes % 0.8 %; Immature Granulocytes Absolute 0.09 #; Lymphocytes # 0.8 10*3/uL (1.4-4.0); Lymphocytes % 6.6 % (21.3-54.2); Mean Corpuscular HGB Conc 33.8 GM/DL (32-36); Mean Corpuscular Volume 95.2 FL (87-102); Mean Platelet Volume 11.4 FL (9.6-12.0); Monocytes % 3.1 % (1.7-12.7); NRBC # 0.03 10*3/uL; Neutrophils % 89.2 % (38.7-73.9); Platelet Count 114 T/CUMM (130-400); Red Blood Count 3.54 MC/CUMM (3.8-5.5); Red Cell Distribution Width 15.9 % (9.3-17.3); White Blood Count 11.9 T/CUMM (4-12)
[2020-08-07 06:31] LABS: Albumin 2.6 G/DL (3.4-5.0); Bilirubin,Total 0.6 MG/DL (0.2-1.0); Calcium 8.3 MG/DL (8.5-10.1); Osmolality,Calculated 311.8 MOS/KG (273-304); Potassium 4.1 MMOL/L (3.5-5.1); Total Protein 6.1 G/DL (5.0-7.5)
[2020-08-07] MEDS ORDERED: INSULIN GLARGINE 100 UNIT/ML SUBCUT SCH (09:00)
[2020-08-07] MEDS ORDERED: amLODIPine 10 MG TABLET PO SCH (09:00)
[2020-08-07] MEDS ORDERED: METOPROLOL TARTRATE 100 MG TABLET PO SCH (09:00)
[2020-08-07] MEDS: INSULIN LISPRO 100 UNIT/ML SUBCUT SCH ×4 (09:03→21:52)
[2020-08-07] MEDS: predniSONE 10 MG TABLET PO SCH ×2 (09:03→21:52)
[2020-08-07] MEDS: INSULIN GLARGINE 100 UNIT/ML SUBCUT SCH ×2 (09:03→21:52)
[2020-08-07] MEDS: DOCUSATE SODIUM 100 MG CAPSULE PO SCH ×2 (09:03→21:51)
[2020-08-07] MEDS: PANTOPRAZOLE 40 MG TABLET PO SCH (09:03)
[2020-08-07] MEDS: PARoxetine 10 MG TABLET PO SCH (09:03)
[2020-08-07] MEDS: MEMANTINE 10 MG TABLET PO SCH ×2 (09:52→21:51)
[2020-08-07] MEDS: prednisoLONE ACETATE 1% OPH SUSP 5 ML BOTTLE BOTH EYES SCH ×3 (09:57→21:54)
[2020-08-07] MEDS: TRIAMCINOLONE ACETONIDE 0.05% TOP SCH ×2 (09:57→21:55)
[2020-08-07] MEDS: ESTRADIOL 1 MG TABLET PO SCH (09:57)
[2020-08-07] MEDS ORDERED: DILTIAZEM 50 MG/10 ML VIAL IV ONE (10:28)
[2020-08-07 10:36] LABS: Thyroid Stimulating Hormone 0.159 uIU/ml (0.358-3.74); Troponin I 0.176 NG/ML (0.00-0.045)
[2020-08-07] MEDS: DILTIAZEM INJ 100 MG in SODIUM CHLORIDE 0.9% 100 ML IV SCH (10:46)
[2020-08-07] MEDS: ENOXAPARIN 30 MG/0.3 ML SYRINGE SUBCUT SCH (12:44)
[2020-08-07] MEDS: DONEPEZIL 10 MG TABLET PO SCH (21:51)
[2020-08-07] MEDS: AMITRIPTYLINE 75 MG TABLET PO SCH (21:53)
[2020-08-07] MEDS: METOPROLOL TARTRATE 100 MG TABLET PO SCH (21:55)
[2020-08-07] MEDS: LATANOPROST 0.005% OPH SOLN 2.5 ML BOTTLE BOTH EYES SCH (23:44)
[2020-08-08] MEDS: SODIUM CHLORIDE 0.9% 1,000 ML IV SCH ×3 (02:26→22:49)
[2020-08-08 05:55] LABS: Basophils % 0.1 % (0.0-0.8); Hematocrit 30.5 VOL% (35.7-47.0); Hemoglobin 10.1 GM/DL (12.0-16.0); Immature Granulocytes % 1.1 %; Lymphocytes # 0.5 10*3/uL (1.4-4.0); Lymphocytes % 4.9 % (21.3-54.2); Mean Corpuscular HGB Conc 33.1 GM/DL (32-36); Mean Corpuscular Volume 97.8 FL (87-102); Mean Platelet Volume 10.8 FL (9.6-12.0); Monocytes % 2.9 % (1.7-12.7); NRBC # 0.02 10*3/uL; Platelet Count 88 T/CUMM (130-400); Red Blood Count 3.12 MC/CUMM (3.8-5.5); Red Cell Distribution Width 16.5 % (9.3-17.3); White Blood Count 9.2 T/CUMM (4-12)
[2020-08-08 06:17] LABS: Calcium 7.9 MG/DL (8.5-10.1); Osmolality,Calculated 307.7 MOS/KG (273-304); Potassium 4.3 MMOL/L (3.5-5.1)
[2020-08-08 06:21] LABS: Hypochromasia 1+; Lymphocytes 4 % (20-55); Segmented Neutrophils 91 % (50-85); Total Cells Counted 100
[2020-08-08 06:22] LABS: Microcytosis 1+; Platelet Estimate Decreased
[2020-08-08] MEDS: predniSONE 10 MG TABLET PO SCH ×2 (09:10→22:15)
[2020-08-08] MEDS: MEMANTINE 10 MG TABLET PO SCH ×2 (09:10→22:16)
[2020-08-08] MEDS: PANTOPRAZOLE 40 MG TABLET PO SCH (09:10)
[2020-08-08] MEDS: PARoxetine 10 MG TABLET PO SCH (09:10)
[2020-08-08] MEDS: ESTRADIOL 1 MG TABLET PO SCH (09:10)
[2020-08-08] MEDS: DOCUSATE SODIUM 100 MG CAPSULE PO SCH ×2 (09:10→22:15)
[2020-08-08] MEDS: DILTIAZEM CD 120 MG CAPSULE PO SCH (09:11)
[2020-08-08] MEDS: INSULIN LISPRO 100 UNIT/ML SUBCUT SCH ×4 (09:12→22:16)
[2020-08-08] MEDS: INSULIN GLARGINE 100 UNIT/ML SUBCUT SCH ×2 (09:12→22:17)
[2020-08-08] MEDS: METOPROLOL TARTRATE 100 MG TABLET PO SCH ×2 (09:12→22:14)
[2020-08-08] MEDS: prednisoLONE ACETATE 1% OPH SUSP 5 ML BOTTLE BOTH EYES SCH ×3 (09:17→22:18)
[2020-08-08] MEDS: TRIAMCINOLONE ACETONIDE 0.05% TOP SCH (09:42)
[2020-08-08] MEDS: DILTIAZEM INJ 100 MG in SODIUM CHLORIDE 0.9% 100 ML IV SCH (09:42)
[2020-08-08] MEDS: ENOXAPARIN 30 MG/0.3 ML SYRINGE SUBCUT SCH (12:18)
[2020-08-08] MEDS ORDERED: DEXTROSE 50% 25 GM/50 ML VIAL IV PRN (15:01)
[2020-08-08] MEDS: ACETAMINOPHEN 325 MG TABLET PO PRN (18:31)
[2020-08-08] MEDS: AMITRIPTYLINE 75 MG TABLET PO SCH (22:15)
[2020-08-08] MEDS: DONEPEZIL 10 MG TABLET PO SCH (22:16)
[2020-08-08] MEDS: LATANOPROST 0.005% OPH SOLN 2.5 ML BOTTLE BOTH EYES SCH (22:42)
[2020-08-09 06:03] LABS: Basophils % 0.2 % (0.0-0.8); Hematocrit 29.1 VOL% (35.7-47.0); Hemoglobin 9.6 GM/DL (12.0-16.0); Immature Granulocytes % 1.5 %; Immature Granulocytes Absolute 0.12 #; Lymphocytes # 0.4 10*3/uL (1.4-4.0); Lymphocytes % 4.7 % (21.3-54.2); Mean Corpuscular Volume 99.7 FL (87-102); Mean Platelet Volume 11.6 FL (9.6-12.0); NRBC # 0.03 10*3/uL; Neutrophils % 90.6 % (38.7-73.9); Platelet Count 102 T/CUMM (130-400); Red Blood Count 2.92 MC/CUMM (3.8-5.5); Red Cell Distribution Width 16.3 % (9.3-17.3); White Blood Count 8.1 T/CUMM (4-12)
[2020-08-09 06:27] LABS: Hypochromasia 1+; Lymphocytes 5 % (20-55); Microcytosis 1+; Platelet Estimate Decreased; Segmented Neutrophils 94 % (50-85); Total Cells Counted 100
[2020-08-09 06:37] LABS: Calcium 7.8 MG/DL (8.5-10.1); Osmolality,Calculated 308.6 MOS/KG (273-304); Potassium 4.1 MMOL/L (3.5-5.1)
[2020-08-09] MEDS: prednisoLONE ACETATE 1% OPH SUSP 5 ML BOTTLE BOTH EYES SCH ×3 (10:13→21:35)
[2020-08-09] MEDS: DILTIAZEM CD 120 MG CAPSULE PO SCH (10:14)
[2020-08-09] MEDS: predniSONE 10 MG TABLET PO SCH ×2 (10:14→21:35)
[2020-08-09] MEDS: DOCUSATE SODIUM 100 MG CAPSULE PO SCH ×2 (10:14→21:16)
[2020-08-09] MEDS: ESTRADIOL 1 MG TABLET PO SCH (10:14)
[2020-08-09] MEDS: PARoxetine 10 MG TABLET PO SCH (10:14)
[2020-08-09] MEDS: PANTOPRAZOLE 40 MG TABLET PO SCH (10:15)
[2020-08-09] MEDS: METOPROLOL TARTRATE 100 MG TABLET PO SCH ×2 (10:15→21:16)
[2020-08-09] MEDS: MEMANTINE 10 MG TABLET PO SCH ×2 (10:15→21:16)
[2020-08-09] MEDS: INSULIN LISPRO 100 UNIT/ML SUBCUT SCH ×4 (10:16→21:17)
[2020-08-09] MEDS: INSULIN GLARGINE 100 UNIT/ML SUBCUT SCH ×2 (10:17→21:16)
[2020-08-09] MEDS: TRIAMCINOLONE ACETONIDE 0.05% TOP SCH (10:18)
[2020-08-09] MEDS: DILTIAZEM INJ 100 MG in SODIUM CHLORIDE 0.9% 100 ML IV SCH (10:33)
[2020-08-09] MEDS: SODIUM CHLORIDE 0.9% 1,000 ML IV SCH ×2 (10:58→22:37)
[2020-08-09] MEDS: ENOXAPARIN 30 MG/0.3 ML SYRINGE SUBCUT SCH (11:09)
[2020-08-09] MEDS: ACETAMINOPHEN 325 MG TABLET PO PRN (13:01)
[2020-08-09] MEDS: AMITRIPTYLINE 75 MG TABLET PO SCH (21:16)
[2020-08-09] MEDS: DONEPEZIL 10 MG TABLET PO SCH (21:16)
[2020-08-09] MEDS: LATANOPROST 0.005% OPH SOLN 2.5 ML BOTTLE BOTH EYES SCH (21:35)
[2020-08-10] MEDS: TRIAMCINOLONE ACETONIDE 0.05% TOP SCH ×3 (05:59→21:23)
[2020-08-10 06:17] LABS: Basophils % 0.1 % (0.0-0.8); Eosinophils % 0.4 % (0.00-10.9); Hematocrit 29.5 VOL% (35.7-47.0); Hemoglobin 9.6 GM/DL (12.0-16.0); Immature Granulocytes % 2.3 %; Immature Granulocytes Absolute 0.17 #; Lymphocytes # 0.7 10*3/uL (1.4-4.0); Mean Corpuscular HGB Conc 32.5 GM/DL (32-36); Mean Corpuscular Volume 99.7 FL (87-102); Mean Platelet Volume 11.2 FL (9.6-12.0); Monocytes % 4.3 % (1.7-12.7); NRBC # 0.06 10*3/uL; Neutrophils % 83.9 % (38.7-73.9); Platelet Count 111 T/CUMM (130-400); Red Blood Count 2.96 MC/CUMM (3.8-5.5); Red Cell Distribution Width 16.1 % (9.3-17.3); White Blood Count 7.4 T/CUMM (4-12)
[2020-08-10 06:31] LABS: Calcium 7.6 MG/DL (8.5-10.1); Osmolality,Calculated 294.1 MOS/KG (273-304); Potassium 4.2 MMOL/L (3.5-5.1)
[2020-08-10 06:37] LABS: Hypochromasia 1+; Microcytosis 1+; Platelet Estimate Decreased
[2020-08-10] MEDS: prednisoLONE ACETATE 1% OPH SUSP 5 ML BOTTLE BOTH EYES SCH ×3 (09:20→21:23)
[2020-08-10] MEDS: predniSONE 10 MG TABLET PO SCH ×2 (09:22→21:23)
[2020-08-10] MEDS: DILTIAZEM CD 120 MG CAPSULE PO SCH (09:22)
[2020-08-10] MEDS: SODIUM CHLORIDE 0.9% 1,000 ML IV SCH (09:22)
[2020-08-10] MEDS: PARoxetine 10 MG TABLET PO SCH (09:22)
[2020-08-10] MEDS: PANTOPRAZOLE 40 MG TABLET PO SCH (09:23)
[2020-08-10] MEDS: MEMANTINE 10 MG TABLET PO SCH ×2 (09:23→21:23)
[2020-08-10] MEDS: INSULIN GLARGINE 100 UNIT/ML SUBCUT SCH (09:23)
[2020-08-10] MEDS: METOPROLOL TARTRATE 100 MG TABLET PO SCH ×2 (09:23→21:23)
[2020-08-10] MEDS: ESTRADIOL 1 MG TABLET PO SCH (09:23)
[2020-08-10] MEDS: DOCUSATE SODIUM 100 MG CAPSULE PO SCH ×2 (09:23→21:23)
[2020-08-10] MEDS: INSULIN LISPRO 100 UNIT/ML SUBCUT SCH ×3 (09:24→17:20)
[2020-08-10] MEDS: DILTIAZEM INJ 100 MG in SODIUM CHLORIDE 0.9% 100 ML IV SCH (09:31)
[2020-08-10] MEDS: ENOXAPARIN 30 MG/0.3 ML SYRINGE SUBCUT SCH (11:22)
[2020-08-10] MEDS: AMITRIPTYLINE 75 MG TABLET PO SCH (21:23)
[2020-08-10] MEDS: LATANOPROST 0.005% OPH SOLN 2.5 ML BOTTLE BOTH EYES SCH (21:23)
[2020-08-10] MEDS: DONEPEZIL 10 MG TABLET PO SCH (21:23)
[2020-08-10] MEDS: ACETAMINOPHEN 325 MG TABLET PO PRN (21:24)
[2020-08-11] MEDS: INSULIN LISPRO 100 UNIT/ML SUBCUT SCH ×2 (00:39→08:18)
[2020-08-11] MEDS: SODIUM CHLORIDE 0.9% 1,000 ML IV SCH ×2 (00:39→06:33)
[2020-08-11] MEDS: INSULIN GLARGINE 100 UNIT/ML SUBCUT SCH (08:17)
[2020-08-11] MEDS: ESTRADIOL 1 MG TABLET PO SCH (08:18)
[2020-08-11] MEDS: DILTIAZEM CD 120 MG CAPSULE PO SCH (08:19)
[2020-08-11] MEDS: PANTOPRAZOLE 40 MG TABLET PO SCH (08:20)
[2020-08-11] MEDS: PARoxetine 10 MG TABLET PO SCH (08:20)
[2020-08-11] MEDS: MEMANTINE 10 MG TABLET PO SCH (08:21)
[2020-08-11] MEDS: METOPROLOL TARTRATE 100 MG TABLET PO SCH (08:21)
[2020-08-11] MEDS: DOCUSATE SODIUM 100 MG CAPSULE PO SCH (08:21)
[2020-08-11] MEDS: predniSONE 10 MG TABLET PO SCH (08:21)
[2020-08-11 08:24] VITALS: BP 138/75
[2020-08-11] MEDS ORDERED: NYSTATIN 500,000 UNIT/5 ML UDCUP SWISH/SWAL SCH (09:00)
[2020-08-11] MEDS ORDERED: ASPIRIN EC 81 MG TABLET PO SCH (09:00)
[2020-08-11] MEDS: prednisoLONE ACETATE 1% OPH SUSP 5 ML BOTTLE BOTH EYES SCH (09:10)
[2020-08-11] MEDS: TRIAMCINOLONE ACETONIDE 0.05% TOP SCH (09:28)
== END 2020-08-11 11:20 | disposition swing bed (61) | DRG 638 ==
LOC: N.ED 09:14 → N.EDINP 10:35 → N.TELEN 11:28
PROVIDERS: ADMIT Internal Medicine; ATTEND Internal Medicine

== ENCOUNTER 2020-11-20 11:17 | Inpatient (IN) ==
[2020-11-20] MEDS ORDERED: DILTIAZEM 50 MG/10 ML VIAL IV STA (12:42)
[2020-11-20] MEDS ORDERED: DILTIAZEM INJ 100 MG in SODIUM CHLORIDE 0.9% 100 ML IV SCH (13:00)
[2020-11-20 13:31] LABS: Basophils % 0.1 % (0.0-0.8); Hematocrit 40.8 VOL% (35.7-47.0); Hemoglobin 12.4 GM/DL (12.0-16.0); Immature Granulocytes Absolute 4.35 #; Lymphocytes # 2.2 10*3/uL (1.4-4.0); Lymphocytes % 6.9 % (21.3-54.2); Mean Corpuscular HGB Conc 30.4 GM/DL (32-36); Mean Corpuscular Volume 106.5 FL (87-102); Mean Platelet Volume 11.3 FL (9.6-12.0); Monocytes % 2.8 % (1.7-12.7); Neutrophils % 76.2 % (38.7-73.9); Platelet Count 228 T/CUMM (130-400); Red Blood Count 3.83 MC/CUMM (3.8-5.5); Red Cell Distribution Width 15.6 % (9.3-17.3)
[2020-11-20 13:54] LABS: INR 1.2; PT Patient Result 13.2 SECS (10.5-12.0); Partial Thromboplastin Time 43.6 SECS (23.9-33.8)
[2020-11-20] MEDS ORDERED: CLINDAMYCIN INJ 900 MG/50 ML PREMIX IV STA (14:03)
[2020-11-20] MEDS ORDERED: LEVOFLOXACIN INJ 500 MG/100 ML PREMIX IV STA (14:03)
[2020-11-20 14:14] LABS: Albumin 1.8 G/DL (3.4-5.0); Calcium 10.5 MG/DL (8.5-10.1); Osmolality,Calculated 294.5 MOS/KG (273-304); Potassium 5.2 MMOL/L (3.5-5.1); Total Protein 6.9 G/DL (6.4-8.2)
[2020-11-20] MEDS ORDERED: SODIUM CHLORIDE 0.9% 1,000 ML IV STA (14:23)
[2020-11-20 14:38] LABS: ABG Base Excess -27.8 MMOL/L (-2.5-2.5); ABG HCO3 6.1 MMOL/L (20-26); ABG Oxygen Saturation 89.3 % (95-100); ABG PCO2 37.9 MM HG (35-48); ABG TCO2 6.6 MMOL/L (23-27)
[2020-11-20 14:40] LABS: ABG PH 6.838 (7.35-7.45)
[2020-11-20] MEDS ORDERED: SODIUM BICARBONATE 50 MEQ/50 ML VIAL IV STA (14:43)
[2020-11-20] MEDS ORDERED: ACETAMINOPHEN 325 MG TABLET PO PRN (14:50)
[2020-11-20] MEDS ORDERED: ONDANSETRON 4 MG/2 ML VIAL IV PRN (14:50)
[2020-11-20] MEDS ORDERED: SODIUM BICARBONATE 50 MEQ/50 ML VIAL IV ONE (14:52)
[2020-11-20] MEDS: SODIUM CHLORIDE 0.9% 1,000 ML IV SCH (17:04)
[2020-11-20] MEDS ORDERED: VANCOMYCIN INJ 1,000 MG in SODIUM CHLORIDE 0.9% 250 ML IV PRN (17:23)
[2020-11-20] MEDS ORDERED: NOREPINEPHRINE 4 MG/4 ML VIAL IV ONE (17:26)
[2020-11-20] MEDS ORDERED: VANCOMYCIN INJ 1,000 MG in SODIUM CHLORIDE 0.9% 250 ML IV SCH (17:30)
[2020-11-20] MEDS: NOREPINEPHRINE 8 MG in SODIUM CHLORIDE 0.9% 242 ML IV PRN ×3 (17:35→22:30)
[2020-11-20 17:49] VITALS: BP 47/37
[2020-11-20] MEDS ORDERED: VANCOMYCIN INJ 1,500 MG in SODIUM CHLORIDE 0.9% 500 ML IV ONE (18:00)
[2020-11-20] MEDS: HYDROCORTISONE 100 MG VIAL IV SCH (19:18)
[2020-11-20] MEDS ORDERED: DOCUSATE SODIUM 100 MG CAPSULE PO SCH (21:00)
[2020-11-20 21:29] LABS: Nucleated Red Blood Cells 2 (0-5); Platelet Estimate Normal; Total Cells Counted 100
[2020-11-20 21:31] LABS: Myelocytes 5 %; Segmented Neutrophils 84 % (50-85)
[2020-11-20 21:32] LABS: Lymphocytes 7 % (20-55)
[2020-11-20] MEDS ORDERED: MORPHINE 4 MG/1 ML VIAL IV PRN (21:51)
[2020-11-20] MEDS ORDERED: CLINDAMYCIN INJ 600 MG/50 ML PREMIX IV SCH (22:00)
[2020-11-21] MEDS: NOREPINEPHRINE 8 MG in SODIUM CHLORIDE 0.9% 242 ML IV PRN ×5 (01:00→09:20)
[2020-11-21] MEDS: SODIUM CHLORIDE 0.9% 1,000 ML IV SCH ×2 (02:45→07:40)
[2020-11-21] MEDS: HYDROCORTISONE 100 MG VIAL IV SCH ×2 (02:48→10:56)
[2020-11-21] MEDS ORDERED: SODIUM BICARBONATE 50 MEQ/50 ML VIAL IV ONE ×2 (04:20→09:13)
[2020-11-21] MEDS ORDERED: SODIUM CHLORIDE 0.9% 1,000 ML IV ONE (04:21)
[2020-11-21] MEDS ORDERED: PANTOPRAZOLE 40 MG TABLET PO SCH (09:00)
[2020-11-21] MEDS ORDERED: LEVOFLOXACIN INJ 750 MG in PREMIX 1 EACH IV SCH (09:00)
[2020-11-21] MEDS ORDERED: PHENYLEPHRINE DRIP 40 MG/250 ML PREMIX IV PRN (09:13)
[2020-11-21] MEDS ORDERED: SODIUM CHLORIDE 0.9% 1,000 ML IV SCH (09:30)
[2020-11-21] MEDS ORDERED: NOREPINEPHRINE 16 MG in SODIUM CHLORIDE 0.9% 234 ML IV PRN (09:56)
[2020-11-21] MEDS ORDERED: LORazepam 2 MG/1 ML VIAL IV PRN (11:10)
[2020-11-21 11:11] LABS: ABG Base Excess -14.4 MMOL/L (-2.5-2.5); ABG Oxygen Saturation 97.8 % (95-100); ABG PO2 152.1 MM HG (80-95); ABG TCO2 14.1 MMOL/L (23-27); Allen Test Positive; Pt O2 Delivery Device BIPAP
[2020-11-21] MEDS ORDERED: MORPHINE 4 MG/1 ML VIAL IV PRN (11:11)
[2020-11-21 11:13] LABS: ABG PH 7.175 (7.35-7.45)
[2020-11-21] MEDS ORDERED: LORazepam 2 MG/1 ML VIAL ONE (11:22)
== END 2020-11-21 11:45 | disposition expired | DRG 871 ==
LOC: N.ED 11:17 → N.EDINP 14:13 → SUATTDRO 14:13 → N.TELES 14:41 → N.CC 18:06
PROVIDERS: ADMIT Internal Medicine; ATTEND Internal Medicine